=== PATIENT | female | born 1935 | race Caucasian/White ===

== ENCOUNTER 2019-03-26 21:44 | Inpatient (IN) ==
[2019-03-26] MEDS ORDERED: 0.9 % Sodium Chloride 1,000 ML IVC ONE (22:00)
--- NOTE | 2019-03-26 22:05 | Emergency Department Note ---
Disposition Clinical Impression: Dehydration, Decreased responsiveness, Parkinsons disease Dysphagia Qualifiers: Dysphagia type: unspecified Qualified Code(s): R13.10 - Dysphagia, unspecified Failure to thrive Qualifiers: Failure to thrive age range: in adult Qualified Code(s): R62.7 - Adult failure to thrive Disposition: Still a Patient Referrals: Yan Jacob MD [Primary Care Provider] - Time of Disposition: 23:15 General Adult HPI - General Time Seen by Provider: 03/26/19 21:48 Source: patient, family, EMS Mode of arrival: EMS Limitations: no limitations Nursing Notes Reviewed: Yes Vital Signs Reviewed: Yes - History of Present Illness HPI Narrative: Patient is an 83-year-old female with a past medical history including hypertension, GERD, arthritis, Parkinson's disease, presenting with family via EMS with chief complaint of decreased responsiveness and dehydration. Family including the patient's 2 sons, one of him is her power of forestry foreman is at bedside. They state that the patient has had a decreased appetite and difficulty eating and swallowing food and water for one week. They state that the patient does have decreased urination. The patient states it is painful to swallow the food. Sons state that it appears that she has a difficult time with the swallowing process. They note no new weakness. Patient denies any numbness or tingling. Over the past week, they state that the patient appears very dehydrated, she also has decreased responsiveness as well. They state she appears to be slower in answering questions and having a difficult time talking. She will wake up to her name and painful stimuli. They are concerned that the patient is very dehydrated as she has not taken in much by mouth. They state that the patient is DNR CC. They do not want invasive procedures performed. Denies fevers or chills, shortness of breath, chest pain, abdominal pain, vomiting. - Related Data Home Medications Medication Instructions Recorded Confirmed Carbidopa/Levodopa 25/100 [Sinemet] 2 each PO TID 06/18/15 01/18/19 Krill Oil/[place]-3/Dha/Epa [[place]-3 1 each PO DAILY 06/18/15 01/18/19 Krill Oil Softgel] Omeprazole [Prilosec] 20 mg PO DAILY 06/18/15 01/18/19 Vitamin D3/Folic Acid [Ortho D 2,000 units PO DAILY 06/18/15 01/18/19 3,775 Unit-1 mg Cap] l [place]ass[place]/B Bifidum/B Longum 1 each PO DAILY 06/18/15 01/18/19 [Reflectance Medical Capsule] Fluticasone Propionate Nasal 50 mcg NS BID PRN 06/22/17 01/18/19 [Flonase] Rotigotine [Neupro] 1 each TD DAILY 06/22/17 01/18/19 Calcium Carbonate/Vitamin D3 1 each PO DAILY 01/02/18 01/18/19 [Calcium 600 + Vit D Softgel] Albuterol Sulfate [Proair Hfa] 2 puff IH Q4H PRN 06/12/18 01/18/19 Furosemide [Lasix] 20 mg PO DAILY 06/12/18 01/18/19 Megestrol Acetate [Megace] 40 mg PO DAILY 06/12/18 01/18/19 Polyethylene Glycol 3350 [MiraLAX] 17 gm PO DAILY PRN 06/12/18 01/18/19 Tamsulosin HCl [Flomax] 0.4 mg PO DAILY 06/12/18 01/18/19 Torsemide [Demadex] 0.5 - 1 tab PO DAILY PRN 06/12/18 01/18/19 Previous Rx's Medication Instructions Recorded Venlafaxine [Effexor] 25 mg PO BID #180 tablet 07/26/18 Allergies Allergy/AdvReac Type Severity Reaction Status Date / Time aspirin [ASA] Allergy Nausea Verified 03/26/19 22:02 Penicillins [PCN] Allergy Nausea Verified 03/26/19 22:02 All systems ED: reviewed and negative except as stated. Review of Systems: As Per HPI Constitutional: Denies: fever, chills Cardiovascular: Denies: chest pain Respiratory: Denies: dyspnea Gastrointestinal: Denies: abdominal pain, vomiting Genitourinary: Reports: dysuria Neurological: Denies: headache Past Medical History - Past Medical History Attestation: Yes The following information was validated with the patient. Source: patient Medical history: Reports: arthritis, asthma, cancer, GERD, hypertension Surgical history: Reports: breast surgery, hip replacement Psychiatric history: Reports: no psych history - Social History Smoking Status: Never smoker Smokeless Tobacco Status: No Alcohol use: Reports: none Drug use: Reports: none Physical Exam - General Limitations: no limitations General appearance: alert, in no apparent distress, cachectic - Head Head exam: atraumatic, normocephalic - Eye Eye exam: Present: normal appearance, PERRL, EOMI - ENT ENT exam: mucous membranes dry - Neck Neck exam: Present: trachea midline - Chest Chest inspection: Present: normal inspection, symmetric chest wall rise - Respiratory Respiratory exam: Present: normal lung sounds bilaterally. Absent: respiratory distress, wheezes - Cardiovascular Cardiovascular exam: Present: regular rate, normal rhythm - Abdominal Exam Abdominal exam: Present: soft, Non-Tender. Absent: distention - Extremities Exam Extremities exam: Present: normal capillary refill. Absent: pedal edema, calf tenderness - Neurological Exam Neurological exam: Present: alert, oriented X3. Absent: motor sensory deficit - Expanded Neurological Exam Motor strength - LUE: 5/5 Motor strength - RUE: 5/5 Motor strength - LLE: 5/5 Motor strength - RLE: 5/5 - Skin Skin exam: Present: warm, dry Course Vital Signs Temperature 97.9 F 03/26/19 22:02 Pulse Rate 95 03/26/19 22:02 Respiratory Rate 22 03/26/19 22:02 Blood Pressure 113/66 03/26/19 22:02 O2 Sat by Pulse Oximetry 94 03/26/19 22:02 Temperature 97.9 F 03/26/19 22:02 Pulse Rate 95 03/26/19 22:02 Respiratory Rate 22 03/26/19 22:02 Blood Pressure 113/66 03/26/19 22:02 O2 Sat by Pulse Oximetry 94 03/26/19 22:02 Oxygen Delivery Oxygen Delivery Oximizer Medical Decision Making - [facility] Narrative Medical decision making narrative: Discussed with patient and family at bedside including the patient's power of forestry foreman. They have documentation states the patient is DNR CC. They do not want the patient to undergo any invasive procedures. They do however consent to lab work, imaging studies. They had concerns that she is not eating and is very dehydrated. Patient will close her eyes in the room but opens her eyes to name and verbal stimuli. She follows commands appropriately. She does also answer questions appropriately. Her strength is equal bilaterally. Her oral mucosa are significantly dry. She is slow to respond at times. We will give her a liter of IV fluid bolus and reevaluate. We will obtain CBC, BMP, chest x- ray, urinalysis, EKG. Patient denies any pain at this time. Anticipate admission. Family will need to have discussions of goals of care. Discussed possible EGD to evaluate for mechanical cause which family does not want. Discu ssed the need for potential TPN and feeding tube if the patient is unable to tolerate PO. Admission pending labs, imaging. - Medical Records Medical records reviewed: Yes I reviewed the patient's medical records. - Lab Data Result diagrams: 03/26/19 22:25 Lab Results 03/26/19 Range/Units 22:25 WBC 10.6 (4.3-11.1) K/mcL RBC 4.48 (3.82-4.97) M/mcL Hgb 14.5 (11.5-15.4) g/dL Hct 47.8 H (35.3-44.9) % MCV 106.7 H (83.0-100.0) fL MCH 32.4 (28.0-33.3) pg MCHC 30.3 L (31.6-35.5) g/dL RDW 12.5 (11.5-14.5) % Plt Count 198 (140-400) K/mcL MPV 10.3 (9.4-12.4) fL Immature Gran % 0.4 (0-4) % Seg Neutrophils % 80.1 % Lymphocytes % 11.2 % Monocytes % 7.9 % Eosinophils % 0.1 % Basophils % 0.3 % Neutrophils # 8.5 (1.6-8.9) K/mcL Lymphocytes # 1.2 (0.6-4.6) K/mcL Monocytes # 0.8 (0.0-1.3) K/mcL Eosinophils # 0.0 (0.0-0.6) K/mcL Basophils # 0.0 (0.0-0.2) K/mcL - EKG Data EKG #1 EKG attestation: Yes I reviewed and interpreted this EKG. EKG results narrative: EKG obtained at 2227 shows sinus rhythm with heart rate 94, WA interval 189, QRS duration 139, QTC 477, right bundle branch block, no ST elevation or depression, compared to old EKG on 12/29/2017 which is no new changes.
--- NOTE | 2019-03-26 22:16 | Emergency Department Note ---
Disposition Clinical Impression: Dehydration, Decreased responsiveness, Parkinsons disease Disposition: Still a Patient Referrals: Yan Jacob MD [Primary Care Provider] - Time of Disposition: 22:16 General Adult HPI - General Time Seen by Provider: 03/26/19 21:48 Source: patient, family, EMS Mode of arrival: EMS Limitations: no limitations Nursing Notes Reviewed: Yes Vital Signs Reviewed: Yes - History of Present Illness HPI Narrative: Attestation note: Patient was seen with the emergency medicine resident/nurse practitioner/physician administrative assistant office manager/transitional resident/medical student: Dr. JON OMER. I was present for the significant portions of the performance and interpretation of procedures and EKGs. I have personally performed a face to face evaluation on this patient. I have reviewed and agree with history and physical examination patient management and disposition. BRIEFLY: 82-year-old female history of advanced Parkinson's disease, transported by EMS from her home for decreased responsiveness poor feeding dehydration. Patient's family which includes a power of senior business development analyst present states that the mother has advanced Parkinson's for the past week has barely ate or drank. There are times that she has been sleepy but arouses easily to voice and light touch. And does appear to have a masklike facies consistent with Parkinson's dry oral mucosa she is thin but not quite cachectic. Family said they did not want anything invasive at this point they did not want admission. They were comfortable with IV rehydration with IV fluids screening labs urinalysis chest x-ray and CAT scan of the head. Disposition pending - Related Data Home Medications Medication Instructions Recorded Confirmed Carbidopa/Levodopa 25/100 [Sinemet] 2 each PO TID 06/18/15 01/18/19 Krill Oil/[place]-3/Dha/Epa [[place]-3 1 each PO DAILY 06/18/15 01/18/19 Krill Oil Softgel] Omeprazole [Prilosec] 20 mg PO DAILY 06/18/15 01/18/19 Vitamin D3/Folic Acid [Ortho D 2,000 units PO DAILY 06/18/15 01/18/19 3,775 Unit-1 mg Cap] l [place]/B Bifidum/B Longum 1 each PO DAILY 06/18/15 01/18/19 [Branch2 Capsule] Fluticasone Propionate Nasal 50 mcg NS BID PRN 06/22/17 01/18/19 [Flonase] Rotigotine [Neupro] 1 each TD DAILY 06/22/17 01/18/19 Calcium Carbonate/Vitamin D3 1 each PO DAILY 01/02/18 01/18/19 [Calcium 600 + Vit D Softgel] Albuterol Sulfate [Proair Hfa] 2 puff IH Q4H PRN 06/12/18 01/18/19 Furosemide [Lasix] 20 mg PO DAILY 06/12/18 01/18/19 Megestrol Acetate [Megace] 40 mg PO DAILY 06/12/18 01/18/19 Polyethylene Glycol 3350 [MiraLAX] 17 gm PO DAILY PRN 06/12/18 01/18/19 Tamsulosin HCl [Flomax] 0.4 mg PO DAILY 06/12/18 01/18/19 Torsemide [Demadex] 0.5 - 1 tab PO DAILY PRN 06/12/18 01/18/19 Previous Rx's Medication Instructions Recorded Venlafaxine [Effexor] 25 mg PO BID #180 tablet 07/26/18 Allergies Allergy/AdvReac Type Severity Reaction Status Date / Time aspirin [ASA] Allergy Nausea Verified 03/26/19 22:02 Penicillins [PCN] Allergy Nausea Verified 03/26/19 22:02 Constitutional: Denies: fever, chills Cardiovascular: Denies: chest pain Respiratory: Denies: dyspnea Gastrointestinal: Denies: abdominal pain, vomiting Genitourinary: Reports: dysuria Neurological: Denies: headache Past Medical History - Past Medical History Medical history: Reports: arthritis, asthma, cancer, GERD, hypertension Surgical history: Reports: breast surgery, hip replacement Psychiatric history: Reports: no psych history - Social History Smoking Status: Never smoker Smokeless Tobacco Status: No Alcohol use: Reports: none Drug use: Reports: none Physical Exam - General Limitations: no limitations General appearance: alert, in no apparent distress, cachectic
[2019-03-26 22:46] LABS: Basophils % 0.3 %; Eosinophils % 0.1 %; Hematocrit 47.8 % (35.3-44.9); Hemoglobin 14.5 g/dL (11.5-15.4); Immature Granulocytes % 0.4 % (0-4); Lymphocytes # 1.2 K/mcL (0.6-4.6); Lymphocytes % 11.2 %; Mean Corpuscular HGB Conc 30.3 g/dL (31.6-35.5); Mean Corpuscular Hemoglobin 32.4 pg (28.0-33.3); Mean Corpuscular Volume 106.7 fL (83.0-100.0); Mean Platelet Volume 10.3 fL (9.4-12.4); Monocytes # 0.8 K/mcL (0.0-1.3); Monocytes % 7.9 %; Neutrophils # 8.5 K/mcL (1.6-8.9); Platelet Count 198 K/mcL (140-400); Red Blood Count 4.48 M/mcL (3.82-4.97); Red Cell Distribution Width 12.5 % (11.5-14.5); Segmented Neutrophils % 80.1 %; White Blood Count 10.6 K/mcL (4.3-11.1)
[2019-03-26 23:35] LABS: BUN/Creatinine Ratio 36 (6-26); Blood Urea Nitrogen 32 mg/dL (8-23); Calcium 10.4 mg/dL (8.6-10.3); Carbon Dioxide 39 mEq/L (23-29); Chloride 100 mEq/L (98-107); Glucose 103 mg/dL (70-105); Osmolality,Calculated 311 (280-300); Potassium 3.9 mEq/L (3.5-5.1); Sodium 147 mEq/L (136-145); eGFR For African Americans > 60 (> 60); eGFR For Non-African Americans 60 (> 60)
[2019-03-27 00:23] LABS: Bilirubin,Urine Small (Negative); Blood,Urine Trace (Negative); Clarity,Urine Cloudy (Clear); Color,Urine Yellow (Yellow); Glucose,Urine (UA) Normal (Normal); Ketones,Urine Negative (Negative); Leukocyte Esterase,Urine Large (Negative); Nitrite,Urine Negative (Negative); PH,Urine 5.5 pH Units (5.0-8.0); Protein,Urine 100 mg/dL (Neg-Trace); Specific Gravity,Urine 1.021 (1.010-1.025); Urobilinogen,Urine Normal (Normal)
[2019-03-27 00:25] LABS: Bacteria,Urine Few per hpf (None-Few); Hyaline Casts,Urine None Seen per lpf (None-Few); Squamous Epithelial Cell,Urine Many per lpf (None-Few); WBC,Urine TNTC per hpf (0-3)
[2019-03-27] MEDS ORDERED: Vancomycin (wt based) 1,000 MG VIAL IV STA (00:32)
[2019-03-27] MEDS ORDERED: Naloxone 0.4 MG/ML INJ IVP PRN (02:47)
[2019-03-27] MEDS ORDERED: Ondansetron 4 MG/2 ML VIAL IVP PRN (02:47)
[2019-03-27] MEDS ORDERED: 0.45 % Sodium Chloride w/KCl 20 MEQ/1,000 ML MLS IVC SCH (03:00)
[2019-03-27] MEDS ORDERED: *HR* Metoprolol 5 MG/5 ML VIAL IVP ONE (03:02)
[2019-03-27 03:08] LABS: ABG PCO2 > 150 mmHg (35-45); ABG PH 6.94 pH Units (7.32-7.45); ABG PO2 175 mmHg (85-104)
[2019-03-27] MEDS: *HR* Metoprolol 5 MG/5 ML VIAL IVP PRN (03:12)
[2019-03-27] MEDS ORDERED: 0.9 % Sodium Chloride 1,000 ML ONE (03:23)
[2019-03-27] MEDS ORDERED: Artificial Tears SOLN 15 ML BOTTLE BOTH EYES PRN (03:47)
[2019-03-27] MEDS: cefTRIAXone 2,000 MG in Water for inj. (sterile) 20 ML IVP SCH (04:44)
[2019-03-27 04:45] LABS: Basophils % 0.3 %; Hematocrit 47.2 % (35.3-44.9); Hemoglobin 13.9 g/dL (11.5-15.4); Immature Granulocytes % 0.6 % (0-4); Lymphocytes # 0.5 K/mcL (0.6-4.6); Lymphocytes % 3.2 %; Mean Corpuscular HGB Conc 29.4 g/dL (31.6-35.5); Mean Corpuscular Hemoglobin 32.7 pg (28.0-33.3); Mean Corpuscular Volume 111.1 fL (83.0-100.0); Mean Platelet Volume 10.2 fL (9.4-12.4); Monocytes # 0.9 K/mcL (0.0-1.3); Monocytes % 6.3 %; Neutrophils # 12.8 K/mcL (1.6-8.9); Platelet Count 184 K/mcL (140-400); Red Blood Count 4.25 M/mcL (3.82-4.97); Red Cell Distribution Width 12.5 % (11.5-14.5); Segmented Neutrophils % 89.6 %; White Blood Count 14.3 K/mcL (4.3-11.1)
--- NOTE | 2019-03-27 05:07 | Internal Med History&Physical ---
Date of Encounter: 03/27/19 Time of Encounter: 01:35 Internal Medicine - H&P: HPI Chief complaint: AMS; depressed oral intake Admitted From: Emergency Dept Plans for Post Hospital Care: Home History of present illness: Ms. Lofton is an 83 year old female who presents to the ER tonight with complaints of altered mental status, weakness, poor oral intake for last several days, and difficulty swallowing food. She was found to be profoundly dehydrated and had evidence of UTI. She was therefore admitted to the hospitalist service. Upon my assessment of the patient in ER, her 2 sons and sister were at the bedside. Patient was very dehydrated in appearance, nonverbal, weak, but alert and responsive. History was obtained from both her sons and her sister. 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 She lives at home with 24-hour in-house care. Family members state that over the last 3 day s, she has had minimal to no oral intake, including fluids. She has had increasing confusion, decreased alertness, and increased somnolence according to family. Patient received IV fluids and antibiotics in the ER. Patient was conversant earlier in the day with her sons and verbally told them that she refused to have a feeding tube placed. I broached the subject about resuscitation and CODE STATUS. Her oldest son is the power of workers compensation attorney, and he confirms that she is DNR arrest. However, they both requested and agreed that she see receive full supportive means as necessary in the event she develops sepsis, respiratory failure, and/or need for pressors. This includes intubation and mechanical ventilation. They do not want her to receive chest compressions, defibrillation, and/or sustained life support. I recommended the patient's family and the patient herself (if/when coherent) have a discussion with palliative care and child protective services social worker to further delineate goals of care. Bryan brizuela, I accepted the patient on admission and informed the family that we will proceed with IV fluids, antibiotics, and support as necessary. I was then called to the patient floor/bedside roughly 2 hours later as the patient was now unresponsive and there was concern that she might develop respiratory arrest. I came to the bedside, and patient did have a status change. She was unresponsive and only had a gag reflex on my exam -- a clear change from my earlier assessment in ER. I ordered stat ABG, which revealed profound respiratory acidosis. We therefore intubated patient at the bedside urgently. Patient was successfully intubated by respiratory therapy under my direct supervision. I attempted to call family prior to intubation to confirm their wishes for life support. However, I was unable to reach family members by 2 separate phone calls. I left a voicemail for family to call and contact ICU. Once we established an airway, patient was moved to intensive care unit for ongoing life supporting measures. CODE STATUS will remain DNR arrest. In the event she develops a cardiac arrest, we will honor her wishes and the wishes of her power of workers compensation attorney, and we will not resuscitate in the event of cardiac arrest. Past Med Surg Social Fam HX - Past Medical History Source: old records reviewed, obtained from family Medical history: arthritis, asthma, cancer, dementia (Parkinsons), GERD, hypertension Psychiatric history: no psych history - Past Surgical History Surgical History: breast surgery, hip replacement - Social History Smoking Status: Never smoker Smokeless Tobacco Status: No Alcohol use: none Drug use: none Current living situation: Home Activity Level: Mostly sedentary Recent Out of Country Travel Within the Last 8 Weeks: No - Family History Mother History Unknown: Yes Living Status: Father History Unknown: Yes Living Status: Internal Medicine - H&P: Meds Carbidopa/Levodopa 25/100 [Sinemet] 2 each PO TID 06/18/15 [History] Krill Oil/[place]-3/Dha/Epa [[place]-3 Krill Oil Softgel] 1 each PO DAILY 06/18/15 [History] Omeprazole [Prilosec] 20 mg PO DAILY 06/18/15 [History] Vitamin D3/Folic Acid [Ortho D 3,775 Unit-1 mg Cap] 2,000 units PO DAILY 06/18/15 [History] l [place]ass[place]/B Bifidum/B Longum [[employer] Capsule] 1 each PO DAILY 06/18/15 [History] Fluticasone Propionate Nasal [Flonase] 50 mcg NS BID PRN 06/22/17 [History] Rotigotine [Neupro] 1 each TD DAILY 06/22/17 [History] Calcium Carbonate/Vitamin D3 [Calcium 600 + Vit D Softgel] 1 each PO DAILY 01/02/18 [History] Albuterol Sulfate [Proair Hfa] 2 puff IH Q4H PRN 06/12/18 [History] Furosemide [Lasix] 20 mg PO DAILY 06/12/18 [History] Megestrol Acetate [Megace] 40 mg PO DAILY 06/12/18 [History] Polyethylene Glycol 3350 [MiraLAX] 17 gm PO DAILY PRN 06/12/18 [History] Tamsulosin HCl [Flomax] 0.4 mg PO DAILY 06/12/18 [History] Torsemide [Demadex] 0.5 - 1 tab PO DAILY PRN 06/12/18 [History] Venlafaxine [Effexor] 25 mg PO BID #180 tablet 07/26/18 [Rx] Allergy/AdvReac Type Severity Reaction Status Date / Time aspirin [ASA] Allergy Nausea Verified 03/26/19 22:02 Penicillins [PCN] Allergy Nausea Verified 03/26/19 22:02 ROS unobtainable: due to mental status All Systems PM: per family report in [id number] - Constitutional Constitutional: fatigue, no chills, no fever(s) - Cardiovascular Cardiovascular ROS IM: no chest pain, no dyspnea - Respiratory Respiratory: no cough, no chest congestion - Gastrointestinal Additional comments: poor to no oral intake - Neurological Neurological ROS: confusion - Psychiatric Psychiatric: abnormal sleep pattern, confusion - Constitutional Vitals: Temp Pulse Resp BP Pulse Ox 97.9 F 85 14 143/95 100 03/26/19 22:02 03/27/19 04:00 03/27/19 04:28 03/27/19 04:28 03/27/19 04:28 General appearance: Present: A&O X 0, no acute distress. Absent: answers questions appropriately Exam: very dry in appearance, somnolent, arousable, looking around with her eyes - Head Head exam: Present: atraumatic, normal inspection - Eye Eye exam: Present: EOMI. Absent: scleral icterus - ENT ENT exam: Present: mucous membranes dry, normal oropharynx - Neck Neck exam general surgery: Present: trachea midline. Absent: lymphadenopathy, tenderness, nuchal rigidity, thyromegaly - Respiratory Respiratory exam: Present: CTAB. Absent: accessory muscle use, chest wall tenderness, rales, respiratory distress, rhonchi, wheezes - Cardiovascular Cardiovascular exam: Present: irregular rhythm, +S1, +S2, systolic murmur, tachycardia. Absent: diastolic murmur - GI/Abdominal GI/Abdominal exam: Present: normal bowel sounds, soft. Absent: guarding, hepatomegaly, mass, rebound, splenomegaly, tenderness - Extremities Exam Extremities exam: Present: warm. Absent: calf tenderness, joint swelling, normal capillary refill (delayed at roughly 4 seconds), pedal edema, tenderness - Neurological Exam Neurological exam: Present: altered Additional comments: somnolent, arousable, non-verbal, responds to painful and verbal stimuli; after arrival to patient floor from ER, status change noted with depressed LOC - Psychiatric Psychiatric exam: Present: flat affect - Skin Skin exam: Present: dry, intact, warm Internal Med - H&P Results - Labs CBC & Chem 7: 03/26/19 22:25 03/26/19 22:25 Labs: Short CBC 03/26/19 Range/Units 22:25 WBC 10.6 (4.3-11.1) K/mcL Hgb 14.5 (11.5-15.4) g/dL Hct 47.8 H (35.3-44.9) % Plt Count 198 (140-400) K/mcL Neutrophils # 8.5 (1.6-8.9) K/mcL BMP 03/26/19 22:25 Sodium 147 H Potassium 3.9 Chloride 100 Carbon Dioxide 39 H BUN 32 H Creatinine 0.90 Glucose 103 Calcium 10.4 H Urine 03/26/19 Range/Units 23:55 Urine Color Yellow (Yellow) Urine Clarity Cloudy A (Clear) Urine pH 5.5 (5.0-8.0) pH Units Ur Specific [place] 1.021 (1.010-1.025) Urine Protein 100 H (Neg-Trace) mg/dL Urine Glucose (UA) Normal (Normal) mg/dL - ABG Interpretation Interpretation: ABG interpreted by me ABG results: 03/27/19 03:04 ABG pH 6.94 L* ABG pCO2 > 150 H* ABG pO2 175 H ABG HCO3 TNP ABG Total CO2 TNP ABG O2 Saturation TNP ABG Base Excess TNP Interpretation: respiratory acidosis - EKG Data -: EKG Interpreted by Myself - EKG Data Prior EKG available for review: no EKG comments: 03/27/19 05:13 atrial fib/RVR - Impressions ITS Impressions Chest X-Ray 03/26/19 22:00 IMPRESSION: No acute abnormality identified. D/ / Blake Ledezma MD / Blake Ledezma MD Interpreting Provider: Blake Ledezma MD Head CT 03/26/19 22:01 IMPRESSION: 1. No intracranial hemorrhage or acute transcortical infarct. 2. Redemonstration of mild white matter hypoattenuation likely the sequela of chronic small vessel ischemia. If there is persistent clinical concern for acute ischemia, MRI would be the more sensitive modality. D/ / Gavino Gamino / Gavino Gamino Interpreting Provider: Gavino Gamino Chest X-Ray 03/27/19 03:47 IMPRESSION: ET tube low lying. Recommend pulling back by approximately 4 cm. NG tube in satisfactory position. Left pleural effusion versus pleural thickening. D/ / Shilo Marks MD / Shilo Marks MD Interpreting Provider: Shilo Marks MD - Diagnostic Studies Chest x-ray Status: image reviewed by me (negative) - Assessment and Plan (1) Acute hypercapnic respiratory failure Current Visit: Yes Status: Acute Assessment and plan: 1. Patient noted to have status change shortly after arrival to nursing unit. Patient intubated and airway secured, then moved to ICU for ongoing ventilatory support. 2. Vent management orders provided and will trend ABG's. 3. I tried to contact family members by two different phone number s prior to intubation, but no answer -- left voicemail. 4. Consult Pulmonology for ICU management. 5. Consult palliative care for goals of care counseling. (2) UTI (urinary tract infection) Current Visit: Yes Status: Acute Assessment and plan: 1. Urine cultures obtained in ER. 2. I also ordered blood cultures. 3. Will continue IV antibiotics with IV Rocephin. 4. Follow cultures and clinical exam, adjusting antibiotics as necessary. Qualifiers: Urinary tract infection type: acute cystitis Hematuria presence: with hematuria Qualified Code(s): N30.01 - Acute cystitis with hematuria (3) Dehydration Current Visit: Yes Status: Acute Assessment and plan: 1. IVF hydration. 2. Monitor electrolytes closely, I/O, and renal function. 3. Krishna placement for critical I/O monitoring. (4) Failure to thrive Current Visit: Yes Status: Chronic Assessment and plan: 1. Consult palliative care to meet with family and POA regarding goals of care. 2. Patient voiced to both sons earlier yesterday that she would refuse a feeding tube. 3. IVF hydration for now. 4. May need nutrition consult in the next 24 hours pending above work-up and discussions. Qualifiers: Failure to thrive age range: in adult Qualified Code(s): R62.7 - Adult failure to thrive (5) Parkinsonism Current Visit: Yes Status: Chronic Assessment and plan: 1. Progressive and advanced. 2. Resume home meds as appropriate when meds verified. 3. Goals of care discussion as above. Qualifiers: Parkinsonism type: Parkinson's disease Qualified Code(s): G20 - Parkinson's disease (6) DVT prophylaxis Current Visit: Yes Status: Acute Assessment and plan: 1. Heparin SQ.
[2019-03-27 05:12] LABS: Macrocytosis Present (Not Present); Platelet Estimate Normal (Normal)
[2019-03-27 05:13] LABS: Alanine Aminotransferase 19 Units/L (7-52); Albumin/Globulin Ratio 1.5 (1.1-2.2); Alkaline Phosphatase 54 Units/L (34-104); Aspartate Amino Transferase 22 Units/L (13-39); BUN/Creatinine Ratio 32 (6-26); Bilirubin,Total 0.5 mg/dL (0.3-1.0); Blood Urea Nitrogen 30 mg/dL (8-23); Calcium 10.1 mg/dL (8.6-10.3); Carbon Dioxide 37 mEq/L (23-29); Chloride 104 mEq/L (98-107); Globulin 2.6 g/dL (2.4-3.5); Glucose 163 mg/dL (70-105); Magnesium 2.2 mg/dL (1.6-2.6); Osmolality,Calculated 318 (280-300); Phosphorous 8.3 mg/dL (2.7-4.5); Potassium 4.9 mEq/L (3.5-5.1); Sodium 149 mEq/L (136-145); Total Protein 6.6 g/dL (6.4-8.9); eGFR For African Americans > 60 (> 60); eGFR For Non-African Americans 57 (> 60)
[2019-03-27 05:39] LABS: ABG Base Excess 9 mEq/L (-2 to 3); ABG HCO3 35 mEq/L (21-27); ABG Oxygen Saturation 98 % (95-98); ABG PCO2 52 mmHg (35-45); ABG PH 7.43 pH Units (7.32-7.45); ABG PO2 102 mmHg (85-104); ABG TCO2 36 mEq/L (20-26); Blood Gas PEEP 5 cm H2O; Blood Gas VT 380 cc
[2019-03-27] MEDS: Artificial Tears SOLN 15 ML BOTTLE BOTH EYES SCH ×5 (06:13→20:10)
[2019-03-27] MEDS: Pantoprazole 40 MG VIAL IVP SCH (06:13)
[2019-03-27] MEDS: *HR* Heparin 5,000 UNIT/ML VIAL SQ SCH ×2 (06:13→18:21)
[2019-03-27] MEDS ORDERED: Norepinephrine 4 MG in D5% in Water 250 ML IVC SCH (07:32)
[2019-03-27] MEDS ORDERED: 0.9 % Sodium Chloride 1,000 ML IVC ONE (07:39)
[2019-03-27] MEDS: MetroNIDAZOLE 500 MG/100 ML 500 MG/100 ML BAG IVPB SCH ×2 (08:11→16:02)
[2019-03-27] MEDS: Carbidopa/Levodopa 25/100 TABLET PO SCH ×3 (08:18→20:10)
[2019-03-27] MEDS ORDERED: Dexmedetomidine HCl 400 MCG/100 ML MLS IVC SCH (09:00)
--- NOTE | 2019-03-27 09:20 | Pulmonology Consult Note ---
<Cecily Jules - Last Filed: 03/27/19 10:53> Date of Encounter: 03/27/19 Time of Encounter: 08:40 Assessment and Plan (1) Sepsis Current Visit: Yes Status: Acute Likely secondary to UTI At presentation was not tachycardic or febrile This morning noted to have temperature of 100.7, heart rate in the 90s with WBC 14.3 This morning also hypotensive, we will give IV hydration with albumin Require EPIV for pressors after family meeting Continue ceftriaxone for UTI and IV Flagyl day 1 for aspiration pneumonia Qualifiers: Sepsis type: sepsis due to unspecified organism Severe sepsis acute organ dysfunction type: acute respiratory failure Acute respiratory failure type: with hypercapnia Severe sepsis shock status: without septic shock Qualified Code(s): A41.9 - Sepsis, unspecified organism; R65.20 - Severe sepsis without septic shock; J96.02 - Acute respiratory failure with hypercapnia (2) Acute hypercapnic respiratory failure Current Visit: Yes Status: Acute Presented to the ED due to worsening mental status Likely secondary to decreased muscle use from progressive Parkinson's disease At presentation was not hypoxic Shortly after admission was noted to be unresponsive and ABG showed pH of 6.94 with PCO2 of 150 Currently intubated (3) Parkinsons disease Current Visit: Yes Status: Chronic History of progressed Parkinson's disease Prescribed Sinemet at home but has not been taking it due to dysphagia Concern for severely progressed Parkinson's Will restart home Sinemet (4) Dehydration Current Visit: Yes Status: Acute Dehydration likely secondary to decreased oral intake Per family patient has been having difficulty swallowing for quite some time progressed the past 3 days Family reports the patient does not want a feeding tube for nutrition Continue IV hydration (5) Dysphagia Current Visit: Yes Status: Chronic Dysphagia likely secondary to progressive Parkinson's disease Family reports were-time she has had poor oral intake and often needs to be fed small bites at a time She does not want a PEG tube Qualifiers: Dysphagia type: unspecified Qualified Code(s): R13.10 - Dysphagia, unspecified (6) Failure to thrive Current Visit: Yes Status: Chronic BMI of 17.3 Likely secondary to poor oral intake Continue IV hydration Can initiate to feed Palliative care consultated Qualifiers: Failure to thrive age range: in adult Qualified Code(s): R62.7 - Adult failure to thrive (7) DVT prophylaxis Current Visit: Yes Status: Acute Subcutaneous heparin History of Present Illness Consult date: 03/27/19 Reason for consult: other (septic shock) History of present illness: Ms. Lofton is an 83-year-old female with past medical history of Parkinson's, who presented to the ED on 03/26/1933 altered mental status, weakness and difficulty swallowing. In the ED she was found to be profoundly dehydrated and urinalysis showed leukocyte esterase with white blood cells. Information is obtained from chart review. Only reports that for the past 3 days she has had minimal to no oral intake including fluids to 2 confusion and somnolence and per family she had informed sounds as she does not want feeding tube placed. Per chart review family is agreeable to intubation and mechanical ventilation but do not want chest compressions or defibrillation. Her ABG overnight showed pH 6.94, with PCO2 of 150. Overnight she became unresponsive and only had gag reflex, subseq uently needed to be intubated. This morning her white count has increased to 14.3 from 10.6 has received 2 L of IV fluid in response to volume resuscitation appropriately. She is awake and responds with head movement. Past Med Surg Social Fam HX - Past Medical History Medical history: arthritis, asthma, cancer, dementia (Parkinsons), GERD, hypertension Psychiatric history: no psych history - Past Surgical History Surgical History: breast surgery, hip replacement - Social History Smoking Status: Never smoker Smokeless Tobacco Status: No Alcohol use: none Drug use: none - Family History Mother History Unknown: Yes Living Status: Father History Unknown: Yes Living Status: Medications and Allergies Carbidopa/Levodopa 25/100 [Sinemet] 2 each PO TID 06/18/15 [History] Krill Oil/Leola-3/Dha/Epa [Leola-3 Krill Oil Softgel] 1 each PO DAILY 06/18/15 [History] Omeprazole [Prilosec] 20 mg PO DAILY 06/18/15 [History] Vitamin D3/Folic Acid [Ortho D 3,775 Unit-1 mg Cap] 2,000 units PO DAILY 06/18/15 [History] l Gasseri/B Bifidum/B Longum [[employer] Health Capsule] 1 each PO DAILY 06/18/15 [History] Fluticasone Propionate Nasal [Flonase] 50 mcg NS BID PRN 06/22/17 [History] Rotigotine [Neupro] 1 each TD DAILY 06/22/17 [History] Calcium Carbonate/Vitamin D3 [Calcium 600 + Vit D Softgel] 1 each PO DAILY 01/02/18 [History] Albuterol Sulfate [Proair Hfa] 2 puff IH Q4H PRN 06/12/18 [History] Furosemide [Lasix] 20 mg PO DAILY 06/12/18 [History] Megestrol Acetate [Megace] 40 mg PO DAILY 06/12/18 [History] Polyethylene Glycol 3350 [MiraLAX] 17 gm PO DAILY PRN 06/12/18 [History] Tamsulosin HCl [Flomax] 0.4 mg PO DAILY 06/12/18 [History] Torsemide [Demadex] 0.5 - 1 tab PO DAILY PRN 06/12/18 [History] Venlafaxine [Effexor] 25 mg PO BID #180 tablet 07/26/18 [Rx] Allergy/AdvReac Type Severity Reaction Status Date / Time aspirin [ASA] Allergy Nausea Verified 03/26/19 22:02 Penicillins [PCN] Allergy Nausea Verified 03/26/19 22:02 ROS unobtainable: due to endotracheal tube, due to mental status All Systems: The remainder of the systems were reviewed and are negative Physical Examination Vital Signs: Vital Signs, Last 4 Hours Temp Pulse Resp BP Pulse Ox 03/27/19 08:17 100.7 F H 03/27/19 08:06 99 96/61 97 03/27/19 07:52 96 81/53 97 03/27/19 06:00 99.1 F 68 18 68/53 97 03/27/19 05:43 18 95 03/27/19 05:00 96 18 114/64 94 General appearance: no acute distress, alert Eyes: nonicteric ENT: oropharynx moist Neck: supple Effort: normal Inspection: normal Auscultation: bilateral: clear Cardiovascular: regular rate and rhythm Gastrointestinal: soft, non-tender Integumentary: normal Extremities: no cyanosis, no edema Musculoskeletal: no deformities non-focal exam, unable to assess due to mental status Ventilator Settings Ventilator Settings: Ventilator Settings, Last 8 Hours Ventilator Tidal Volume 374 Setting Ventilator Tidal Volume 379 Setting Ventilator Tidal Volume 380 Setting Ventilator Tidal Volume 380 Setting Ventilator Tidal Volume 380 Setting Ventilator Tidal Volume 380 Setting Ventilator Tidal Volume 380 Setting Ventilator Tidal Volume 380 Setting Ventilator Respiratory Rate 14 Setting Ventilator Respiratory Rate 14 Setting Ventilator Respiratory Rate 14 Setting Ventilator Respiratory Rate 14 Setting Ventilator Respiratory Rate 14 Setting Ventilator Respiratory Rate 14 Setting Ventilator Respiratory Rate 14 Setting Ventilator Respiratory Rate 14 Setting Actual Respiratory Rate 18 Actual Respiratory Rate 18 Actual Respiratory Rate 18 Actual Respiratory Rate 18 Actual Respiratory Rate 18 Actual Respiratory Rate 14 Actual Respiratory Rate 14 Positive End Expiratory 5 Pressure Positive End Expiratory 5 Pressure Positive End Expiratory 5 Pressure Positive End Expiratory 5 Pressure Positive End Expiratory 5 Pressure Positive End Expiratory 5 Pressure Positive End Expiratory 5 Pressure Positive End Expiratory 5 Pressure Peak Inspiratory Airway 29 Pressure Peak Inspiratory Airway 26 Pressure Peak Inspiratory Airway 27 Pressure Peak Inspiratory Airway 27 Pressure Peak Inspiratory Airway 25 Pressure Peak Inspiratory Airway 34 Pressure Peak Inspiratory Airway 29 Pressure Results - Laboratory Findings CBC and BMP: 03/27/19 04:23 03/27/19 09:54 ABG ABG pH 7.43 pH Units (7.32-7.45) D 03/27/19 05:32 ABG pCO2 52 mmHg (35-45) H D 03/27/19 05:32 ABG pO2 102 mmHg (85-104) D 03/27/19 05:32 ABG O2 Saturation 98 % (95-98) 03/27/19 05:32 Abnormal lab findings: Abnormal lab results WBC 14.3 K/mcL (4.3-11.1) H 03/27/19 04:23 Hct 47.2 % (35.3-44.9) H 03/27/19 04:23 MCV 111.1 fL (83.0-100.0) H 03/27/19 04:23 MCHC 29.4 g/dL (31.6-35.5) L 03/27/19 04:23 Neutrophils # 12.8 K/mcL (1.6-8.9) H 03/27/19 04:23 Lymphocytes # 0.5 K/mcL (0.6-4.6) L 03/27/19 04:23 Macrocytosis Present (Not Present) A 03/27/19 04:23 ABG pH 6.94 pH Units (7.32-7.45) L* 03/27/19 03:04 ABG pCO2 52 mmHg (35-45) H D 03/27/19 05:32 ABG pO2 175 mmHg (85-104) H 03/27/19 03:04 ABG HCO3 35 mEq/L (21-27) H 03/27/19 05:32 ABG Total CO2 36 mEq/L (20-26) H 03/27/19 05:32 ABG Base Excess 9 mEq/L (-2 to 3) H 03/27/19 05:32 Sodium 149 mEq/L (136-145) H 03/27/19 04:23 Carbon Dioxide 37 mEq/L (23-29) H 03/27/19 04:23 BUN 30 mg/dL (8-23) H 03/27/19 04:23 Est GFR (Non-Af Amer) 57 (> 60) L 03/27/19 04:23 BUN/Creatinine Ratio 32 (6-26) H 03/27/19 04:23 Glucose 163 mg/dL (70-105) H 03/27/19 04:23 POC Glucose 160 mg/dL (70-99) H 03/27/19 02:59 Calculated Osmolality 318 (280-300) H 03/27/19 04:23 Calcium 10.4 mg/dL (8.6-10.3) H 03/26/19 22:25 Phosphorus 8.3 mg/dL (2.7-4.5) H 03/27/19 04:23 Urine Clarity Cloudy (Clear) A 03/26/19 23:55 Urine Protein 100 mg/dL (Neg-Trace) H 03/26/19 23:55 Urine Blood Trace (Negative) H 03/26/19 23:55 Urine Bilirubin Small (Negative) H 03/26/19 23:55 Ur Leukocyte Esterase Large (Negative) H 03/26/19 23:55 Urine Microscopic RBC 5-15 per hpf (0-3) H 03/26/19 23:55 Urine Microscopic WBC TNTC per hpf (0-3) H 03/26/19 23:55 Ur Squamous Epith Cells Many per lpf (None-Few) H 03/26/19 23:55 Ur Culture Indicated? YES (NO) A 03/26/19 23:55 - Microbiology Findings Microbiology Findings: Microbiology, Last 48 Hours 03/27/19 04:24 Blood Culture - Preliminary Peripheral Venipuncture Culture is incubating and being continuously monitored for growth. Final report to follow. 03/27/19 04:10 Blood Culture - Preliminary Peripheral Venipuncture Culture is incubating and being continuously monitored for growth. Final report to follow. 03/26/19 23:55 Urine Culture - Preliminary Urine,Clean Catch Culture is incubating. - Clinical Findings Intake & Output: Intake & Output 03/26/19 03/27/19 03/27/19 23:59 07:59 15:59 Intake Total 1000 / 1000 30 / 30 Output Total 0 / 50 50 / 50 Balance 1000 / 1000 30 / -20 -50 / -20 Weight 44.906 kg 42.8 kg Consult Discharge Plan - Plan Referrals: Yan Jacob MD [Primary Care Provider] - <Jenny Ann - Last Filed: 03/27/19 19:32> Date of Encounter: 03/27/19 All Systems: The remainder of the systems were reviewed and are negative Physical Examination Vital Signs: Vital Signs, Last 4 Hours Temp Pulse Resp BP Pulse Ox 03/27/19 18:23 97 18 145/82 97 03/27/19 17:11 19 71/47 100 03/27/19 17:00 107 18 71/47 100 03/27/19 16:00 99 18 115/58 98 03/27/19 15:56 100.6 F H 03/27/19 15:33 100 03/27/19 15:32 19 124/76 93 03/27/19 15:30 93 18 124/76 94 Ventilator Settings Ventilator Settings: Ventilator Settings, Last 8 Hours Ventilator Tidal Volume 380 Setting Ventilator Tidal Volume 380 Setting Ventilator Tidal Volume 380 Setting Ventilator Tidal Volume 380 Setting Ventilator Tidal Volume 380 Setting Ventilator Tidal Volume 380 Setting Ventilator Tidal Volume 380 Setting Ventilator Tidal Volume 380 Setting Ventilator Tidal Volume 380 Setting Ventilator Respiratory Rate 18 Setting Ventilator Respiratory Rate 18 Setting Ventilator Respiratory Rate 18 Setting Ventilator Respiratory Rate 18 Setting Ventilator Respiratory Rate 18 Setting Ventilator Respiratory Rate 18 Setting Ventilator Respiratory Rate 18 Setting Ventilator Respiratory Rate 18 Setting Ventilator Respiratory Rate 18 Setting Actual Respiratory Rate 18 Actual Respiratory Rate 19 Actual Respiratory Rate 18 Actual Respiratory Rate 19 Actual Respiratory Rate 18 Actual Respiratory Rate 18 Actual Respiratory Rate 18 Actual Respiratory Rate 18 Actual Respiratory Rate 18 Positive End Expiratory 5 Pressure Positive End Expiratory 5 Pressure Positive End Expiratory 5 Pressure Positive End Expiratory 5 Pressure Positive End Expiratory 5 Pressure Positive End Expiratory 5 Pressure Positive End Expiratory 5 Pressure Positive End Expiratory 5 Pressure Positive End Expiratory 5 Pressure Peak Inspiratory Airway 29 Pressure Peak Inspiratory Airway 26 Pressure Peak Inspiratory Airway 29 Pressure Peak Inspiratory Airway 31 Pressure Peak Inspiratory Airway 34 Pressure Peak Inspiratory Airway 26 Pressure Peak Inspiratory Airway 23 Pressure Peak Inspiratory Airway 26 Pressure Peak Inspiratory Airway 31 Pressure Results - Laboratory Findings CBC and BMP: 03/27/19 04:23 03/27/19 09:54 ABG ABG pH 7.43 pH Units (7.32-7.45) D 03/27/19 05:32 ABG pCO2 52 mmHg (35-45) H D 03/27/19 05:32 ABG pO2 102 mmHg (85-104) D 03/27/19 05:32 ABG O2 Saturation 98 % (95-98) 03/27/19 05:32 PT/INR, D-dimer PT 14.1 Seconds (9.4-12.1) H 03/27/19 09:54 Abnormal lab findings: Abnormal lab results WBC 14.3 K/mcL (4.3-11.1) H 03/27/19 04:23 Hct 47.2 % (35.3-44.9) H 03/27/19 04:23 MCV 111.1 fL (83.0-100.0) H 03/27/19 04:23 MCHC 29.4 g/dL (31.6-35.5) L 03/27/19 04:23 Neutrophils # 12.8 K/mcL (1.6-8.9) H 03/27/19 04:23 Lymphocytes # 0.5 K/mcL (0.6-4.6) L 03/27/19 04:23 Macrocytosis Present (Not Present) A 03/27/19 04:23 PT 14.1 Seconds (9.4-12.1) H 03/27/19 09:54 ABG pH 6.94 pH Units (7.32-7.45) L* 03/27/19 03:04 ABG pCO2 52 mmHg (35-45) H D 03/27/19 05:32 ABG pO2 175 mmHg (85-104) H 03/27/19 03:04 ABG HCO3 35 mEq/L (21-27) H 03/27/19 05:32 ABG Total CO2 36 mEq/L (20-26) H 03/27/19 05:32 ABG Base Excess 9 mEq/L (-2 to 3) H 03/27/19 05:32 Sodium 147 mEq/L (136-145) H 03/27/19 09:54 Chloride 110 mEq/L (98-107) H 03/27/19 09:54 Carbon Dioxide 31 mEq/L (23-29) H 03/27/19 09:54 BUN 29 mg/dL (8-23) H 03/27/19 09:54 Est GFR (Non-Af Amer) 57 (> 60) L 03/27/19 04:23 BUN/Creatinine Ratio 38 (6-26) H 03/27/19 09:54 Glucose 62 mg/dL (70-105) L 03/27/19 09:54 POC Glucose 160 mg/dL (70-99) H 03/27/19 02:59 Calculated Osmolality 308 (280-300) H 03/27/19 09:54 Calcium 8.5 mg/dL (8.6-10.3) L 03/27/19 09:54 Phosphorus 8.3 mg/dL (2.7-4.5) H 03/27/19 04:23 Creatine Kinase 289 Units/L (30-223) H 03/27/19 09:54 Urine Clarity Cloudy (Clear) A 03/26/19 23:55 Urine Protein 100 mg/dL (Neg-Trace) H 03/26/19 23:55 Urine Blood Trace (Negative) H 03/26/19 23:55 Urine Bilirubin Small (Negative) H 03/26/19 23:55 Ur Leukocyte Esterase Large (Negative) H 03/26/19 23:55 Urine Microscopic RBC 5-15 per hpf (0-3) H 03/26/19 23:55 Urine Microscopic WBC TNTC per hpf (0-3) H 03/26/19 23:55 Ur Squamous Epith Cells Many per lpf (None-Few) H 03/26/19 23:55 Ur Culture Indicated? YES (NO) A 03/26/19 23:55 - Microbiology Findings Microbiology Findings: Microbiology, Last 48 Hours 03/27/19 04:24 Blood Culture - Preliminary Peripheral Venipuncture Culture is incubating and being continuously monitored for growth. Final report to follow. 03/27/19 04:10 Blood Culture - Preliminary Peripheral Venipuncture Culture is incubating and being continuously monitored for growth. Final report to follow. 03/26/19 23:55 Urine Culture - Preliminary Urine,Clean Catch Culture is incubating. - Clinical Findings Intake & Output: Intake & Output 03/27/19 03/27/19 03/27/19 07:59 15:59 23:59 Intake Total / 1898 1600 / 1898 268 / 1898 Output Total 0 / 325 325 / 325 Balance 30 1573 1275 / 1573 268 / 1573 Weight 42.8 kg - Attending Attestation I saw and evaluated this patient and my medical decision-making was reviewed with the Resident Physician. I agree with the documented findings, disposition and treatment plan as described except to the extent set forth below. We independently had [id number] contact with the patient I spent 55 minutes of Critical Care time with this patient. It involved decision making of high complexity to assess, manipulate, and support vital or sheri system failure and/or to prevent further life threatening deterioration of the patient's condition. The time involved in the performance of separately reportable procedures was not counted toward critical care time. Patient seen and examined at bedside Labs, radiology, chart personally reviewed. Management was reviewed during multidisciplinary critical care rounds. 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: patient is more alert intubated for acute hypercapnic respiratory failure patient is recovering from this toxic/metabolic encephalopathy Pulm: patient presently with acute hypercapnic respiratory failure improving with the mechanical ventilation no evidence of pneumonia at this moment to cover with broad-spectrum antibiotics low tidal volume strategy repeat blood gas and gas exchange and oxygenation stable Cards: patient has on and off hemodynamic instability most likely severe sepsis into septic shock but patient is fluid responsive if after fluid resuscitation as patient is still hypotensive will need and norepinephrine drip FEN-GI: patient will start on tube feeds as patient is small nourished PPI prophylaxis Renal: labs and output reviewed ID: to cover with broad-spectrum antibiotics Heme/Onc: labs reviewed Endo: Glucose Monitored Integ/MSK: Skin Care per routine ICU Nursing Protocol to prevent ulcers. Lines: All lines examined without evidence of infection : Dispo: critically ill CODE: full code
[2019-03-27] MEDS: Chlorhexidine Rinse 15 ML MOUTHWASH MM SCH ×2 (09:51→20:10)
[2019-03-27 10:19] LABS: INR 1.2; Prothrombin Time 14.1 Seconds (9.4-12.1)
[2019-03-27] MEDS: *HR* FentaNYL (PF) 100 MCG/2 ML VIAL IVP PRN ×3 (10:19→20:10)
[2019-03-27 10:27] LABS: BUN/Creatinine Ratio 38 (6-26); Blood Urea Nitrogen 29 mg/dL (8-23); Calcium 8.5 mg/dL (8.6-10.3); Carbon Dioxide 31 mEq/L (23-29); Chloride 110 mEq/L (98-107); Glucose 62 mg/dL (70-105); Osmolality,Calculated 308 (280-300); Sodium 147 mEq/L (136-145); eGFR For African Americans > 60 (> 60); eGFR For Non-African Americans > 60 (> 60)
[2019-03-27] MEDS ORDERED: *HR* Midazolam HCl 5 MG/5 ML VIAL IVP ONE (11:58)
[2019-03-27] MEDS ORDERED: *HR* Midazolam HCl 2 MG/2 ML VIAL IV ONE (11:58)
[2019-03-27] MEDS ORDERED: *HR* Etomidate 20 MG/10 ML AMPUL IVP ONE (11:58)
[2019-03-27] MEDS: Acetaminophen 325 MG TABLET PO PRN (13:06)
[2019-03-27] MEDS ORDERED: Potassium Phosphate 44 MEQ in 0.9 % Sodium Chloride 250 ML IVPB PRN (13:13)
--- NOTE | 2019-03-27 14:05 | Palliative - Consult Note ---
Date of Encounter: 03/27/19 Time of Encounter: 11:00 - Assessment and Plan (1) Dysphagia Current Visit: Yes Status: Chronic Assessment and plan: Patient with hx parkinsons dx. Family reports a steady decline in overall function and dysphagia. Nutrition consulted and will continue to have discussions with family and patient once she is more stable in regards to PEG placement. Qualifiers: Dysphagia type: unspecified Qualified Code(s): R13.10 - Dysphagia, unspecified (2) Goals of care, counseling/discussion Current Visit: Yes Status: Acute Assessment and plan: I spent a total of 45 minutes; 30 minutes were comprised of counseling and information giving around diagnosis and prognosis with the patient and her family. A detailed review of the patients living will was discussed. The patient has Parkinson's disease has has been declining in function for the past 2 month s. The patient hasn't been able to take po medications or food and is at baseline bedridden and requires total assistance with feedings. In summary, we agreed to insert and EPIV to deliver vasopressor infusion to maintain B/P as needed, administer antibiotics and cont intubation and mechanical ventilation at this time and reevaluate her condition in the next 24 hrs. The patient current weight is 93 lbs and this is down from 108 lbs. over the past 3 months. She has been unable to take her sinemet so this will be restarted via NG tube. We discussed patients desire for a PEG and it is felt that this is not an intervention that she desires. The patient can blink her eyes in response to questions and is alert. She shakes her head yes/no in response to some questions. Dr. Ann updated on goals and the PC team will reevaluate the patient in 24 hrs. The patient is a DNRCC - A. (3) Palliative care encounter Current Visit: Yes Status: Acute (4) Parkinsonism Current Visit: Yes Status: Chronic Qualifiers: Parkinsonism type: Parkinson's disease Qualified Code(s): G20 - Parkinson's disease (5) Failure to thrive Current Visit: Yes Status: Chronic Qualifiers: Failure to thrive age range: in adult Qualified Code(s): R62.7 - Adult failure to thrive (6) UTI (urinary tract infection) Current Visit: Yes Status: Acute Qualifiers: Urinary tract infection type: acute cystitis Hematuria presence: with hematuria Qualified Code(s): N30.01 - Acute cystitis with hematuria Palliative-CN HPI - Data of Consult Patient: new to practice Consult date: 03/27/19 Requesting Physician: Shai Nichols MD Primary Care Provider: Yan Jacob MD - Consult Narrative Palliative Care/Comfort Measures: Palliative care Reason for consult: Goals of Care History of present illness: Ms. Lofton is an 83-year-old female with past medical history of Parkinson's, who presented to the ED on 03/26/2019 altered mental status, weakness and difficulty swallowing. In the ED she was found to be profoundly dehydrated and urinalysis showed leukocyte esterase with white blood cells. Family states that patient has not been eating or drinking for the past several days. She reported dysphagia. She lives at home in care of 24 hour caregivers and her family. Patient admitted to medical unit but was transferred to ICU after suffering ARF and being intubated. Suspected sepsis from UTI. Upon this consult, the patient is intubated and mechanically ventilated. Her eyes are open and she can follow commands to blink her eyes in response to questions. He sons LALIT and Scottie are at her bedside. This palliative care consult is for goals of care discussion. CC: Shai Nichols MD - Time Spent with Patient Time: Total time spent is greater than 50% in coordination of care (as documented) at patient's floor/unit and/or counseling patient: Past Med Surg Social Fam HX - Past Medical History Source: old records reviewed, obtained from family, nursing notes reviewed Medical history: arthritis, asthma, cancer, dementia (Parkinsons), GERD, hypertension Psychiatric history: no psych history - Past Surgical History Surgical History: breast surgery, hip replacement - Social History Smoking Status: Never smoker Smokeless Tobacco Status: No Alcohol use: none Drug use: none Current living situation: Home - Independent Activity Level: Mostly sedentary Recent Out of Country Travel Within the Last 8 Weeks: No Exposure or Possible Exposure to Illness During Travel: No - Family History Mother History Unknown: Yes Living Status: Father History Unknown: Yes Living Status: Medications and Allergies Carbidopa/Levodopa 25/100 [Sinemet] 2 each PO TID 06/18/15 [History] Krill Oil/Carnation-3/Dha/Epa [Carnation-3 Krill Oil Softgel] 1 each PO DAILY 11/04/15 [History] Omeprazole [Prilosec] 20 mg PO DAILY 06/18/15 [History] Vitamin D3/Folic Acid [Ortho D 3,775 Unit-1 mg Cap] 2,000 units PO DAILY 06/18/15 [History] l Gasseri/B Bifidum/B Longum [Profind Capsule] 1 each PO DAILY 06/18/15 [History] Fluticasone Propionate Nasal [Flonase] 50 mcg NS BID PRN 06/22/17 [History] Rotigotine [Neupro] 1 each TD DAILY 06/22/17 [History] Calcium Carbonate/Vitamin D3 [Calcium 600 + Vit D Softgel] 1 each PO DAILY 01/02/18 [History] Albuterol Sulfate [Proair Hfa] 2 puff IH Q4H PRN 06/12/18 [History] Furosemide [Lasix] 20 mg PO DAILY 06/12/18 [History] Megestrol Acetate [Megace] 40 mg PO DAILY 06/12/18 [History] Polyethylene Glycol 3350 [MiraLAX] 17 gm PO DAILY PRN 06/12/18 [History] Tamsulosin HCl [Flomax] 0.4 mg PO DAILY 06/12/18 [History] Torsemide [Demadex] 0.5 - 1 tab PO DAILY PRN 06/12/18 [History] Venlafaxine [Effexor] 25 mg PO BID #180 tablet 07/26/18 [Rx] Allergy/AdvReac Type Severity Reaction Status Date / Time aspirin [ASA] Allergy Nausea Verified 03/26/19 22:02 Penicillins [PCN] Allergy Nausea Verified 03/26/19 22:02 ROS unobtainable: due to endotracheal tube - Constitutional Constitutional ROS PAL: decreased appetite, fatigue, weight loss - EENT Eyes: loss of vision, requires corrective lenses - Genitourinary Palliative ROS female: urinary urgency - Musculoskeletal Musculoskeletal ROS IM: muscle weakness, myalgias - Neurological Neurological ROS: tremor(s) - Psychiatric Psychiatric general PM: change in appetite Palliative Care-Exam - Constitutional Vitals: Temp Pulse Resp BP Pulse Ox 101.8 F H 98 18 107/90 98 03/27/19 13:00 03/27/19 13:00 03/27/19 13:00 03/27/19 13:00 03/27/19 13:00 General appearance: Present: cooperative, no acute distress - Head Head Exam: Present: atraumatic, normal inspection - Eye Eye exam: Present: normal appearance, PERRL - ENT ENT exam: Present: mucous membranes dry Additional comments: scant blood to tongue - Expanded ENT Exam Teeth exam: Present: normal external inspection - Respiratory Respiratory exam: Present: decreased breath sounds - Expanded Respiratory Exam Location: decreased breath sounds: Left, Right, Lower - Cardiovascular Cardiovascular exam: Present: RRR, +S1, +S2 - Expanded Cardiovascular Exam Peripheral pulses: 1+: Femoral (L) PM, Femoral (R) PM, Posterior Tibialis (L), Posterior Tibialis (R), Dorsalis Pedis (L) PM, Dorsalis Pedis (R) PM, 2+: Carotid (L) PM, Carotid (R) PM, Radial (L), Radial (R) - GI/Abdominal Exam GI/Abdominal exam: Present: soft - Catheter Type: Urethral (Krishna) Additional comments: Clear yellow urine - Expanded Upper Extremities Exam Shoulder exam: Present: tenderness Upper Arm exam: Present: tenderness Elbow exam: Present: tenderness Forearm wrist exam: Present: tenderness Hand wrist exam: Present: tenderness - Expanded Lower Extremities Exam Hip exam: Present: tenderness Upper Leg exam: Present: tenderness Knee exam: Present: tenderness Lower Leg exam: Present: tenderness - Back Exam Back exam: Present: CVA tenderness (R) - Neurological Exam Neurological exam: Present: alert - Expanded Neurological Exam Neuro motor strength exam: LUE: 3, RUE: 3, LLE: 3, RLE: 3 Coma Scale Eye Opening: Spontaneous Coma Scale Motor Response: Obeys Commands Coma Scale Verbal Response: Oriented Coma Scale Total: 15 - Psychiatric Psychiatric exam: Present: flat affect - Skin Skin exam: Present: pallor, warm Internal Medicine - CN: Reslt - Labs CBC & Chem 7: 03/27/19 04:23 03/27/19 09:54 Labs: Short CBC 03/26/19 03/27/19 Range/Units 22:25 04:23 WBC 10.6 14.3 H (4.3-11.1) K/mcL Hgb 14.5 13.9 (11.5-15.4) g/dL Hct 47.8 H 47.2 H (35.3-44.9) % Plt Count 198 184 (140-400) K/mcL Neutrophils # 8.5 12.8 H (1.6-8.9) K/mcL BMP 03/26/19 03/27/19 03/27/19 22:25 04:23 09:54 Sodium 147 H 149 H 147 H Potassium 3.9 4.9 D 4.0 Chloride 100 104 110 H Carbon Dioxide 39 H 37 H 31 H BUN 32 H 30 H 29 H Creatinine 0.90 0.93 0.77 Glucose 103 163 H 62 L Calcium 10.4 H 10.1 8.5 L Liver Function 03/27/19 Range/Units 04:23 Total Bilirubin 0.5 (0.3-1.0) mg/dL AST 22 (13-39) Units/L ALT 19 (7-52) Units/L Alkaline Phosphatase 54 (34-104) Units/L Albumin 4.0 (3.5-5.7) g/dL Urine 03/26/19 Range/Units 23:55 Urine Color Yellow (Yellow) Urine Clarity Cloudy A (Clear) Urine pH 5.5 (5.0-8.0) pH Units Ur Specific Coin 1.021 (1.010-1.025) Urine Protein 100 H (Neg-Trace) mg/dL Urine Glucose (UA) Normal (Normal) mg/dL - ABG Interpretation ABG results: ABG ABG pH 7.43 pH Units (7.32-7.45) D 03/27/19 05:32 ABG pCO2 52 mmHg (35-45) H D 03/27/19 05:32 ABG pO2 102 mmHg (85-104) D 03/27/19 05:32 ABG O2 Saturation 98 % (95-98) 03/27/19 05:32 PT/INR, D-dimer PT 14.1 Seconds (9.4-12.1) H 03/27/19 09:54 - Impressions Impressions Chest X-Ray 03/26/19 22:00 IMPRESSION: No acute abnormality identified. D/ / Blake Ledezma MD / Blake Ledezma MD Interpreting Provider: Blake Ledezma MD Head CT 03/26/19 22:01 IMPRESSION: 1. No intracranial hemorrhage or acute transcortical infarct. 2. Redemonstration of mild white matter hypoattenuation likely the sequela of chronic small vessel ischemia. If there is persistent clinical concern for acute ischemia, MRI would be the more sensitive modality. D/ / Gavino Gamino / Gavino Gamino Interpreting Provider: Gavino Gamino Echocardiogram 03/27/19 02:51 Impressions: LVEF 65-70%. Mild concentric left ventricular hypertrophy. Mild left ventricular diastolic dysfunction. Normal right ventricular structure and function. No significant valvular dysfunction. No evidence of pulmonary hypertension. Left Ventricular Wall Motion: Rest Echo Findings All wall segments showed normal motion. Findings: Study Quality * Technically sub-optimal due to poor echocardiographic windows. ECG Findings * Normal sinus rhythm. Left Ventricle * LVEF 65-70%. * Normal LV chamber size and systolic function. * Mild concentric left ventricular hypertrophy. * Mild left ventricular diastolic dysfunction. Right Ventricle * Normal right ventricular structure and function. Left Atrium * Normal left atrial size. Right Atrium * Normal right atrial size. Interatrial Septum * Interatrial septum not well evaluated. Aortic Valve * Trileaflet aortic valve. * Mildly calcified aortic valve leaflets. * No aortic stenosis. * No aortic regurgitation. Mitral Valve * Normal mitral valve structure. * No mitral stenosis. * Trace mitral regurgitation. Tricuspid Valve * Normal tricuspid valve structure. * No tricuspid stenosis. * Trace tricuspid regurgitation. * Unable to estimate RVSP due to lack of TR jet. * No evidence of pulmonary hypertension. * Estimated RA pressure is 3 mmHg. Pulmonic Valve * Pulmonic valve is not well visualized. * No pulmonic stenosis. * No pulmonic regurgitation. Aorta * Normally sized aortic root. Pericardium * The pericardium appears normal. IVC * The IVC is not dilated. * > 50% respiratory change Chest X-Ray 03/27/19 03:47 IMPRESSION: ET tube low lying. Recommend pulling back by approximately 4 cm. NG tube in satisfactory position. Left pleural effusion versus pleural thickening. D/ / Shilo Marks MD / Shilo Marks MD Interpreting Provider: Shilo Marks MD Consult Discharge Plan - Plan Referrals: Yan Jacob MD [Primary Care Provider] - Palliative Quality Palliative Quality: Screen for Code Status: Yes, Screen for Goals of Care: Yes, Screen for Pain: Yes, Screen for Nausea/Vomitting: Yes Code Status: 03/27/19 02:47 Resuscitation Status: Active [RES] Routine Comment: Resuscitation Status: DNR-Comfort Care-Arrest Palliative Scale - Palliative Performance Scale How ambulatory is this patient?: Mainly in bed What is patient's level of activity and evidence of disease?: Unable to do most activity, Extensive disease How much self-care assistance does patient require?: Total care How much oral intake does the patient have?: Mouth care only What is this patient's level of consciousness?: Full Palliative Performance Score: 40 %
[2019-03-27] MEDS ORDERED: Acetaminophen IV 1,000 MG/100 ML INFUS..BTL IVPB ONE (15:42)
[2019-03-27 15:51] LABS: Creatine Kinase 289 Units/L (30-223)
[2019-03-27] MEDS: Norepinephrine 4 MG in D5% in Water 250 ML IVC SCH (17:43)
[2019-03-27] MEDS ORDERED: 0.9 % Sodium Chloride 1,000 ML IVC SCH (18:30)
--- NOTE | 2019-03-27 19:46 | Electrocardiograph Report ---
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
[2019-03-28] MEDS: MetroNIDAZOLE 500 MG/100 ML 500 MG/100 ML BAG IVPB SCH ×3 (00:15→17:06)
[2019-03-28] MEDS: Artificial Tears SOLN 15 ML BOTTLE BOTH EYES SCH ×6 (00:15→21:21)
[2019-03-28] MEDS: cefTRIAXone 2,000 MG in Water for inj. (sterile) 20 ML IVP SCH (02:52)
[2019-03-28 04:10] LABS: VBG Ionized Calcium 1.11 mmol/L (1.15-1.35)
[2019-03-28 04:35] LABS: ABG Base Excess 2 mEq/L (-2 to 3); ABG HCO3 24 mEq/L (21-27); ABG Oxygen Saturation 98 % (95-98); ABG PCO2 29 mmHg (35-45); ABG PH 7.53 pH Units (7.32-7.45); ABG PO2 92 mmHg (85-104); ABG TCO2 25 mEq/L (20-26); Blood Gas Modality VC; Blood Gas PEEP 5 cm H2O; Blood Gas VT 380 cc
[2019-03-28 04:38] LABS: BUN/Creatinine Ratio 31 (6-26); Blood Urea Nitrogen 24 mg/dL (8-23); Calcium 8.7 mg/dL (8.6-10.3); Carbon Dioxide 26 mEq/L (23-29); Chloride 105 mEq/L (98-107); Glucose 89 mg/dL (70-105); Magnesium 1.5 mg/dL (1.6-2.6); Osmolality,Calculated 298 (280-300); Phosphorous 1.7 mg/dL (2.7-4.5); Potassium 3.1 mEq/L (3.5-5.1); Sodium 142 mEq/L (136-145); eGFR For African Americans > 60 (> 60); eGFR For Non-African Americans > 60 (> 60)
[2019-03-28] MEDS: Pantoprazole 40 MG VIAL IVP SCH (05:04)
[2019-03-28] MEDS: *HR* Heparin 5,000 UNIT/ML VIAL SQ SCH ×2 (05:04→17:07)
[2019-03-28 05:10] LABS: Basophils % 0.2 %; Hematocrit 33.1 % (35.3-44.9); Hemoglobin 10.8 g/dL (11.5-15.4); Immature Granulocytes % 0.3 % (0-4); Lymphocytes # 1.2 K/mcL (0.6-4.6); Lymphocytes % 10.2 %; Mean Corpuscular HGB Conc 32.6 g/dL (31.6-35.5); Mean Corpuscular Hemoglobin 32.1 pg (28.0-33.3); Mean Corpuscular Volume 98.5 fL (83.0-100.0); Mean Platelet Volume 10.7 fL (9.4-12.4); Monocytes # 0.9 K/mcL (0.0-1.3); Monocytes % 8.1 %; Neutrophils # 9.4 K/mcL (1.6-8.9); Platelet Count 146 K/mcL (140-400); Red Blood Count 3.36 M/mcL (3.82-4.97); Red Cell Distribution Width 12.6 % (11.5-14.5); Segmented Neutrophils % 81.2 %; White Blood Count 11.6 K/mcL (4.3-11.1)
[2019-03-28] MEDS: Chlorhexidine Rinse 15 ML MOUTHWASH MM SCH ×2 (08:14→21:21)
[2019-03-28] MEDS: Acetaminophen 325 MG TABLET PO PRN (08:15)
[2019-03-28] MEDS: Carbidopa/Levodopa 25/100 TABLET PO SCH ×3 (08:15→21:21)
[2019-03-28] MEDS ORDERED: Dextrose Gel 15 GM/37.5 ML TUBE PO PRN ×2 (11:36)
[2019-03-28] MEDS ORDERED: *HR* Dextrose 50 % in Water (Syg) 50 ML SYRINGE IVP PRN (11:36)
[2019-03-28] MEDS ORDERED: D5% in Water 1,000 ML IVC PRN (11:36)
--- NOTE | 2019-03-28 11:41 | Palliative Progress Note ---
Date of Encounter: 03/28/19 Time of Encounter: 11:00 - Assessment and plan (1) Dysphagia Current Visit: Yes Status: Chronic Assessment and plan: Patient with advanced dysphagia r/t Parkinson's disease. TF on hold as patient is having a SBT. Dietary is following patient. Appreciate recommedations. Qualifiers: Dysphagia type: unspecified Qualified Code(s): R13.10 - Dysphagia, unspecified (2) Goals of care, counseling/discussion Current Visit: Yes Status: Acute Assessment and plan: Met with son/POA at bedside. Explained that goal is to extubate the patent today. Confirmed that patient would now be a DNRCC - A, DNI. The patient would not be reintubated and code status changed to DNRCC - A, DNI. Patient shook head yes to not reintubating. Son verbalized understanding. (3) Palliative care encounter Current Visit: Yes Status: Acute (4) Parkinsonism Current Visit: Yes Status: Chronic Qualifiers: Parkinsonism type: Parkinson's disease Qualified Code(s): G20 - Parkinson's disease (5) Failure to thrive Current Visit: Yes Status: Chronic Qualifiers: Failure to thrive age range: in adult Qualified Code(s): R62.7 - Adult failure to thrive (6) UTI (urinary tract infection) Current Visit: Yes Status: Acute Qualifiers: Urinary tract infection type: acute cystitis Hematuria presence: with hematuria Qualified Code(s): N30.01 - Acute cystitis with hematuria - Time Spent With Patient Total time spent is greater than 50% in coordination of care (as documented) at patient's floor/unit and/or counseling patient: less than 15 minutes - Subjective Interval history: Patient doing much better this AM. Family at bedside. Hoping to extubate patient today. Updated family on POC. - Constitutional Vitals: Abnormal lab results WBC 11.6 K/mcL (4.3-11.1) H 03/28/19 04:50 RBC 3.36 M/mcL (3.82-4.97) L 03/28/19 04:50 Hgb 10.8 g/dL (11.5-15.4) L D 03/28/19 04:50 Hct 33.1 % (35.3-44.9) L 03/28/19 04:50 MCV 111.1 fL (83.0-100.0) H 03/27/19 04:23 MCHC 29.4 g/dL (31.6-35.5) L 03/27/19 04:23 Neutrophils # 9.4 K/mcL (1.6-8.9) H 03/28/19 04:50 Lymphocytes # 0.5 K/mcL (0.6-4.6) L 03/27/19 04:23 Macrocytosis Present (Not Present) A 03/27/19 04:23 PT 14.1 Seconds (9.4-12.1) H 03/27/19 09:54 ABG pH 7.53 pH Units (7.32-7.45) H 03/28/19 04:32 ABG pCO2 29 mmHg (35-45) L 03/28/19 04:32 ABG pO2 175 mmHg (85-104) H 03/27/19 03:04 ABG HCO3 35 mEq/L (21-27) H 03/27/19 05:32 ABG Total CO2 36 mEq/L (20-26) H 03/27/19 05:32 ABG Base Excess 9 mEq/L (-2 to 3) H 03/27/19 05:32 Sodium 147 mEq/L (136-145) H 03/27/19 09:54 Potassium 3.1 mEq/L (3.5-5.1) L 03/28/19 04:00 Chloride 110 mEq/L (98-107) H 03/27/19 09:54 Carbon Dioxide 31 mEq/L (23-29) H 03/27/19 09:54 BUN 24 mg/dL (8-23) H 03/28/19 04:00 Est GFR (Non-Af Amer) 57 (> 60) L 03/27/19 04:23 BUN/Creatinine Ratio 31 (6-26) H 03/28/19 04:00 Glucose 62 mg/dL (70-105) L 03/27/19 09:54 POC Glucose 145 mg/dL (70-99) H 03/27/19 03:55 Calculated Osmolality 308 (280-300) H 03/27/19 09:54 Calcium 8.5 mg/dL (8.6-10.3) L 03/27/19 09:54 Venous Ioniz Calcium 1.11 mmol/L (1.15-1.35) L 03/28/19 04:04 Phosphorus 1.7 mg/dL (2.7-4.5) L 03/28/19 04:00 Magnesium 1.5 mg/dL (1.6-2.6) L 03/28/19 04:00 Creatine Kinase 289 Units/L (30-223) H 03/27/19 09:54 Urine Clarity Cloudy (Clear) A 03/26/19 23:55 Urine Protein 100 mg/dL (Neg-Trace) H 03/26/19 23:55 Urine Blood Trace (Negative) H 03/26/19 23:55 Urine Bilirubin Small (Negative) H 03/26/19 23:55 Ur Leukocyte Esterase Large (Negative) H 03/26/19 23:55 Urine Microscopic RBC 5-15 per hpf (0-3) H 03/26/19 23:55 Urine Microscopic WBC TNTC per hpf (0-3) H 03/26/19 23:55 Ur Squamous Epith Cells Many per lpf (None-Few) H 03/26/19 23:55 Ur Culture Indicated? YES (NO) A 03/26/19 23:55 - Head Head exam: Present: atraumatic, normal inspection - Eye Eye exam: Present: PERRL - ENT ENT exam: Present: mucous membranes moist - Neck Neck exam: Present: full ROM - Respiratory Respiratory exam: Present: decreased breath sounds - Expanded Respiratory Exam Location: decreased breath sounds: Left, Right, Lower - Cardiovascular Cardiovascular exam: Present: RRR, +S1, +S2 - GI/Abdominal GI/Abdominal exam: Present: normal bowel sounds, soft - Additional comments: Krishna intact. Draining clear yellow urine - Extremities Exam Extremities exam: Present: tenderness Additional comments: General rigidty to extremities from Parkinson's dx - Neurological Exam Neurological exam: Present: alert - Psychiatric Psychiatric exam: Present: flat affect - Skin Skin exam: Present: pallor, warm Palliative Quality Palliative Quality: Screen for Code Status: Yes, Screen for Goals of Care: Yes, Screen for Pain: Yes, Screen for Nausea/Vomitting: Yes Code Status: 03/27/19 02:47 Resuscitation Status: Active [RES] Routine Comment: Resuscitation Status: DNR-Comfort Care-Arrest 03/28/19 11:34 DNR [Resuscitation Status: Active] [RES] Routine Comment: Resuscitation Status: [id number] - Labs CBC & Chem 7: 03/28/19 04:50 03/28/19 04:00 Labs: Laboratory Results - last 24 hr 03/27/19 03/27/19 03/27/19 03:55 09:54 12:38 WBC RBC Hgb Hct MCV MCH MCHC RDW Plt Count MPV Immature Gran % Seg Neutrophils % Lymphocytes % Monocytes % Eosinophils % Basophils % Neutrophils # Lymphocytes # Monocytes # Eosinophils # Basophils # Sample Site ABG pH ABG pCO2 ABG pO2 ABG HCO3 ABG Total CO2 ABG O2 Saturation ABG Base Excess Sharath Test Respiration Rate O2 Delivery Device Blood Gas Modality Inspired O2 Tidal Volume PEEP Sodium 147 H Potassium 4.0 Chloride 110 H Carbon Dioxide 31 H BUN 29 H Creatinine 0.77 Est GFR ( Amer) > 60 Est GFR (Non-Af Amer) > 60 BUN/Creatinine Ratio 38 H Glucose 62 L POC Glucose 145 H Calculated Osmolality 308 H Lactic Acid Calcium 8.5 L Venous Ioniz Calcium Phosphorus Magnesium Creatine Kinase 289 H Nasal Screen MRSA (PCR) NOT DETECTED Specimen Rejected 03/27/19 03/28/19 03/28/19 20:04 04:00 04:04 WBC RBC Hgb Hct MCV MCH MCHC RDW Plt Count MPV Immature Gran % Seg Neutrophils % Lymphocytes % Monocytes % Eosinophils % Basophils % Neutrophils # Lymphocytes # Monocytes # Eosinophils # Basophils # Sample Site ABG pH ABG pCO2 ABG pO2 ABG HCO3 ABG Total CO2 ABG O2 Saturation ABG Base Excess Sharath Test Respiration Rate O2 Delivery Device Blood Gas Modality Inspired O2 Tidal Volume PEEP Sodium 142 Potassium 3.1 L Chloride 105 Carbon Dioxide 26 BUN 24 H Creatinine 0.78 Est GFR ( Amer) > 60 Est GFR (Non-Af Amer) > 60 BUN/Creatinine Ratio 31 H Glucose 89 POC Glucose Calculated Osmolality 298 Lactic Acid 1.5 Calcium 8.7 Venous Ioniz Calcium 1.11 L Phosphorus 1.7 L Magnesium 1.5 L Creatine Kinase Nasal Screen MRSA (PCR) Specimen Rejected 03/28/19 03/28/19 03/28/19 04:25 04:32 04:50 WBC 11.6 H RBC 3.36 L Hgb 10.8 L D Hct 33.1 L MCV 98.5 D MCH 32.1 MCHC 32.6 RDW 12.6 Plt Count 146 MPV 10.7 Immature Gran % 0.3 Seg Neutrophils % 81.2 Lymphocytes % 10.2 Monocytes % 8.1 Eosinophils % 0.0 Basophils % 0.2 Neutrophils # 9.4 H Lymphocytes # 1.2 Monocytes # 0.9 Eosinophils # 0.0 Basophils # 0.0 Sample Site R Radial ABG pH 7.53 H ABG pCO2 29 L ABG pO2 92 ABG HCO3 24 ABG Total CO2 25 ABG O2 Saturation 98 ABG Base Excess 2 Sharath Test Positive Respiration Rate 18 O2 Delivery Device Adult Vent Blood Gas Modality VC Inspired O2 40.0 Tidal Volume 380 PEEP 5 Sodium Potassium Chloride Carbon Dioxide BUN Creatinine Est GFR ( Amer) Est GFR (Non-Af Amer) BUN/Creatinine Ratio Glucose POC Glucose Calculated Osmolality Lactic Acid Calcium Venous Ioniz Calcium Phosphorus Magnesium Creatine Kinase Nasal Screen MRSA (PCR) Specimen Rejected MCV Delta - ABG Interpretation ABG results: ABG ABG pH 7.53 pH Units (7.32-7.45) H 03/28/19 04:32 ABG pCO2 29 mmHg (35-45) L 03/28/19 04:32 ABG pO2 92 mmHg (85-104) 03/28/19 04:32 ABG O2 Saturation 98 % (95-98) 03/28/19 04:32 PT/INR, D-dimer PT 14.1 Seconds (9.4-12.1) H 03/27/19 09:54 Palliative Scale - Palliative Performance Scale How ambulatory is this patient?: Mainly in bed What is patient's level of activity and evidence of disease?: Unable to do most activity, Extensive disease How much self-care assistance does patient require?: Total care How much oral intake does the patient have?: Mouth care only What is this patient's level of consciousness?: Full Palliative Performance Score: 40 % Consult Discharge Plan - Plan Referrals: Yan Jacob MD [Primary Care Provider] -
[2019-03-28] MEDS: Norepinephrine 4 MG in D5% in Water 250 ML IVC SCH (11:46)
--- NOTE | 2019-03-28 13:55 | Pulmonology Progress Note ---
<Cecily Jules - Last Filed: 03/28/19 13:51> Date of Encounter: 03/28/19 Time of Encounter: 13:52 Assessment and Plan (1) Sepsis Current Visit: Yes Status: Acute Resolved. Likely secondary to UTI At presentation was not tachycardic or febrile At presentation noted to have temperature of 100.7, heart rate in the 90s with WBC 14.3 This morning white count has decreased to 11.6 and afebrile today Has responded appropriately to volume resuscitation Only required Levophed for 2 hours yesterday Continue ceftriaxone for UTI and IV Flagyl day 2 for aspiration pneumonia Qualifiers: Sepsis type: sepsis due to unspecified organism Severe sepsis acute organ dysfunction type: acute respiratory failure Acute respiratory failure type: with hypercapnia Severe sepsis shock status: without septic shock Qualified Code(s): A41.9 - Sepsis, unspecified organism; R65.20 - Severe sepsis without septic shock; J96.02 - Acute respiratory failure with hypercapnia (2) Acute hypercapnic respiratory failure Current Visit: Yes Status: Acute Presented to the ED due to worsening mental status Likely secondary to decreased muscle use from progressive Parkinson's disease At presentation was not hypoxic Shortly after admission yesterday was noted to be unresponsive and ABG showed pH of 6.94 with PCO2 of 150 Improving today will be extubated as responding to CPAP BiPAP after extubation (3) UTI (urinary tract infection) Current Visit: Yes Status: Acute Presented with altered mental status urinalysis showed leukocyte esterase with white blood cell count Likely uncomplicated UTI Continue ceftriaxone day 2 Urinalysis shows gram-negative rods speciation pending Qualifiers: Urinary tract infection type: site unspecified Hematuria presence: without hematuria Qualified Code(s): N39.0 - Urinary tract infection, site not specified (4) Parkinsons disease Current Visit: Yes Status: Chronic History of progressed Parkinson's disease Prescribed Sinemet at home but has not been taking it due to dysphagia Concern for severely progressed Parkinson's Will restart home Sinemet (5) Aspiration pneumonia Current Visit: Yes Status: Suspected Concern for aspiration pneumonia given dysphagia Was intubated at presentation, chest x-ray at presentation did not show any significant finding Continue to treat for aspiration pneumonia with IV Flagyl day 2 of 7 Qualifiers: Aspiration pneumonia type: unspecified Laterality: unspecified laterality Lung location: unspecified part of lung Qualified Code(s): J69.0 - Pneumonitis due to inhalation of food and vomit (6) Dysphagia Current Visit: Yes Status: Chronic Dysphagia likely secondary to progressive Parkinson's disease Family reports for quite some time she has had poor oral intake and often needs to be fed small bites at a time Received feeding with tube feeding during intubation She does not want a PEG tube Qualifiers: Dysphagia type: unspecified Qualified Code(s): R13.10 - Dysphagia, unspecified (7) Failure to thrive Current Visit: Yes Status: Chronic BMI of 17.3 Likely secondary to poor oral intake Receiving tube feeding Appears to have refeeding syndrome after starting tube feeding decreased to feed Electrolyte protocol initiated prior to starting tube feeding Speech evaluation prior to initiating oral intake Qualifiers: Failure to thrive age range: in adult Qualified Code(s): R62.7 - Adult failure to thrive (8) Dehydration Current Visit: Yes Status: Acute Dehydration likely secondary to decreased oral intake Per family patient has been having difficulty swallowing for quite some time progressed the past 3 days prior to admission Received significant IV hydration (9) DVT prophylaxis Current Visit: Yes Status: Acute Subcutaneous heparin Subjective Interval history: Ms. Lofton was seen at bedside this morning. She was intubated and resting comfortably and following commands. Afternoon family was at bedside and patient as well as family wanted the ET tube out. Objective PUL Vital signs: Last Vital Signs Temp 98.6 F 03/28/19 11:45 Pulse 86 03/28/19 13:00 Resp 28 03/28/19 13:00 BP 137/89 03/28/19 13:00 Pulse Ox 100 03/28/19 13:00 General appearance: no acute distress, alert Eyes: nonicteric ENT: oropharynx moist Neck: supple Effort: normal Auscultation: bilateral: diminished breath sounds Cardiovascular: regular rate and rhythm Gastrointestinal: normoactive bowel sounds, soft, non-tender Extremities: no cyanosis, no edema, pulses normal Musculoskeletal: no deformities pupils equal and round, unable to assess due to mental status, other (Follows commands) mood appropriate, affect normal Ventilator Settings Ventilator Settings: Ventilator Settings, Last 8 Hours Ventilator Tidal Volume 280 Setting Ventilator Tidal Volume 280 Setting Ventilator Tidal Volume 280 Setting Ventilator Tidal Volume 280 Setting Ventilator Tidal Volume 280 Setting Ventilator Tidal Volume 380 Setting Ventilator Tidal Volume 380 Setting Ventilator Tidal Volume 380 Setting Ventilator Respiratory Rate 16 Setting Ventilator Respiratory Rate 16 Setting Ventilator Respiratory Rate 16 Setting Ventilator Respiratory Rate 16 Setting Ventilator Respiratory Rate 16 Setting Ventilator Respiratory Rate 16 Setting Ventilator Respiratory Rate 16 Setting Ventilator Respiratory Rate 16 Setting Actual Respiratory Rate 28 Actual Respiratory Rate 27 Actual Respiratory Rate 21 Actual Respiratory Rate 23 Actual Respiratory Rate 22 Actual Respiratory Rate 21 Actual Respiratory Rate 19 Actual Respiratory Rate 16 Actual Respiratory Rate 16 Actual Respiratory Rate 16 Positive End Expiratory 5 Pressure Positive End Expiratory 5 Pressure Positive End Expiratory 5 Pressure Positive End Expiratory 5 Pressure Positive End Expiratory 5 Pressure Positive End Expiratory 5 Pressure Positive End Expiratory 5 Pressure Positive End Expiratory 5 Pressure Peak Inspiratory Airway 25 Pressure Peak Inspiratory Airway 19 Pressure Peak Inspiratory Airway 27 Pressure Results - Laboratory Findings CBC and BMP: 03/28/19 04:50 03/28/19 04:00 ABG ABG pH 7.53 pH Units (7.32-7.45) H 03/28/19 04:32 ABG pCO2 29 mmHg (35-45) L 03/28/19 04:32 ABG pO2 92 mmHg (85-104) 03/28/19 04:32 ABG O2 Saturation 98 % (95-98) 03/28/19 04:32 PT/INR, D-dimer PT 14.1 Seconds (9.4-12.1) H 03/27/19 09:54 Abnormal lab findings: Abnormal lab results WBC 11.6 K/mcL (4.3-11.1) H 03/28/19 04:50 RBC 3.36 M/mcL (3.82-4.97) L 03/28/19 04:50 Hgb 10.8 g/dL (11.5-15.4) L D 03/28/19 04:50 Hct 33.1 % (35.3-44.9) L 03/28/19 04:50 MCV 111.1 fL (83.0-100.0) H 03/27/19 04:23 MCHC 29.4 g/dL (31.6-35.5) L 03/27/19 04:23 Neutrophils # 9.4 K/mcL (1.6-8.9) H 03/28/19 04:50 Lymphocytes # 0.5 K/mcL (0.6-4.6) L 03/27/19 04:23 Macrocytosis Present (Not Present) A 03/27/19 04:23 PT 14.1 Seconds (9.4-12.1) H 03/27/19 09:54 ABG pH 7.53 pH Units (7.32-7.45) H 03/28/19 04:32 ABG pCO2 29 mmHg (35-45) L 03/28/19 04:32 ABG pO2 175 mmHg (85-104) H 03/27/19 03:04 ABG HCO3 35 mEq/L (21-27) H 03/27/19 05:32 ABG Total CO2 36 mEq/L (20-26) H 03/27/19 05:32 ABG Base Excess 9 mEq/L (-2 to 3) H 03/27/19 05:32 Sodium 147 mEq/L (136-145) H 03/27/19 09:54 Potassium 3.1 mEq/L (3.5-5.1) L 03/28/19 04:00 Chloride 110 mEq/L (98-107) H 03/27/19 09:54 Carbon Dioxide 31 mEq/L (23-29) H 03/27/19 09:54 BUN 24 mg/dL (8-23) H 03/28/19 04:00 Est GFR (Non-Af Amer) 57 (> 60) L 03/27/19 04:23 BUN/Creatinine Ratio 31 (6-26) H 03/28/19 04:00 Glucose 62 mg/dL (70-105) L 03/27/19 09:54 POC Glucose 145 mg/dL (70-99) H 03/27/19 03:55 Calculated Osmolality 308 (280-300) H 03/27/19 09:54 Calcium 8.5 mg/dL (8.6-10.3) L 03/27/19 09:54 Venous Ioniz Calcium 1.11 mmol/L (1.15-1.35) L 03/28/19 04:04 Phosphorus 1.7 mg/dL (2.7-4.5) L 03/28/19 04:00 Magnesium 1.5 mg/dL (1.6-2.6) L 03/28/19 04:00 Creatine Kinase 289 Units/L (30-223) H 03/27/19 09:54 Urine Clarity Cloudy (Clear) A 03/26/19 23:55 Urine Protein 100 mg/dL (Neg-Trace) H 03/26/19 23:55 Urine Blood Trace (Negative) H 03/26/19 23:55 Urine Bilirubin Small (Negative) H 03/26/19 23:55 Ur Leukocyte Esterase Large (Negative) H 03/26/19 23:55 Urine Microscopic RBC 5-15 per hpf (0-3) H 03/26/19 23:55 Urine Microscopic WBC TNTC per hpf (0-3) H 03/26/19 23:55 Ur Squamous Epith Cells Many per lpf (None-Few) H 03/26/19 23:55 Ur Culture Indicated? YES (NO) A 03/26/19 23:55 - Microbiology Findings Microbiology Findings: Microbiology, Last 48 Hours 03/26/19 23:55 Urine Culture - Preliminary Urine,Clean Catch Gram Negative Joshua 03/27/19 04:24 Blood Culture - Preliminary Peripheral Venipuncture Culture is incubating and being continuously monitored for growth. Final report to follow. 03/27/19 04:10 Blood Culture - Preliminary Peripheral Venipuncture Culture is incubating and being continuously mon itored for growth. Final report to follow. - Clinical Findings Intake & Output: Intake & Output 03/27/19 03/28/19 03/28/19 23:59 07:59 15:59 Intake Total 1328 / 2958 1606 / 1886 280 / 1886 Output Total 60 / 385 360 / 360 Balance 1268 / 2573 1246 / 1526 280 / 1526 Consult Discharge Plan - Plan Referrals: Yan Jacob MD [Primary Care Provider] - <Jenny Ann - Last Filed: 03/28/19 20:37> Date of Encounter: 03/28/19 Objective PUL Vital signs: Last Vital Signs Temp 99.3 F 03/28/19 16:45 Pulse 92 03/28/19 18:08 Resp 32 03/28/19 18:08 BP 151/93 03/28/19 18:08 Pulse Ox 97 03/28/19 18:08 Ventilator Settings Ventilator Settings: Ventilator Settings, Last 8 Hours Actual Respiratory Rate 28 Results - Laboratory Findings CBC and BMP: 03/28/19 04:50 03/28/19 16:46 ABG ABG pH 7.53 pH Units (7.32-7.45) H 03/28/19 04:32 ABG pCO2 29 mmHg (35-45) L 03/28/19 04:32 ABG pO2 92 mmHg (85-104) 03/28/19 04:32 ABG O2 Saturation 98 % (95-98) 03/28/19 04:32 PT/INR, D-dimer PT 14.1 Seconds (9.4-12.1) H 03/27/19 09:54 Abnormal lab findings: Abnormal lab results WBC 11.6 K/mcL (4.3-11.1) H 03/28/19 04:50 RBC 3.36 M/mcL (3.82-4.97) L 03/28/19 04:50 Hgb 10.8 g/dL (11.5-15.4) L D 03/28/19 04:50 Hct 33.1 % (35.3-44.9) L 03/28/19 04:50 MCV 111.1 fL (83.0-100.0) H 03/27/19 04:23 MCHC 29.4 g/dL (31.6-35.5) L 03/27/19 04:23 Neutrophils # 9.4 K/mcL (1.6-8.9) H 03/28/19 04:50 Lymphocytes # 0.5 K/mcL (0.6-4.6) L 03/27/19 04:23 Macrocytosis Present (Not Present) A 03/27/19 04:23 PT 14.1 Seconds (9.4-12.1) H 03/27/19 09:54 ABG pH 7.53 pH Units (7.32-7.45) H 03/28/19 04:32 ABG pCO2 29 mmHg (35-45) L 03/28/19 04:32 ABG pO2 175 mmHg (85-104) H 03/27/19 03:04 ABG HCO3 35 mEq/L (21-27) H 03/27/19 05:32 ABG Total CO2 36 mEq/L (20-26) H 03/27/19 05:32 ABG Base Excess 9 mEq/L (-2 to 3) H 03/27/19 05:32 Sodium 147 mEq/L (136-145) H 03/27/19 09:54 Potassium 3.1 mEq/L (3.5-5.1) L 03/28/19 04:00 Chloride 110 mEq/L (98-107) H 03/27/19 09:54 Carbon Dioxide 31 mEq/L (23-29) H 03/27/19 09:54 BUN 24 mg/dL (8-23) H 03/28/19 04:00 Est GFR (Non-Af Amer) 57 (> 60) L 03/27/19 04:23 BUN/Creatinine Ratio 31 (6-26) H 03/28/19 04:00 Glucose 62 mg/dL (70-105) L 03/27/19 09:54 POC Glucose 145 mg/dL (70-99) H 03/27/19 03:55 Calculated Osmolality 308 (280-300) H 03/27/19 09:54 Calcium 8.5 mg/dL (8.6-10.3) L 03/27/19 09:54 Venous Ioniz Calcium 1.13 mmol/L (1.15-1.35) L 03/28/19 17:03 Phosphorus 1.7 mg/dL (2.7-4.5) L 03/28/19 04:00 Magnesium 1.5 mg/dL (1.6-2.6) L 03/28/19 04:00 Creatine Kinase 289 Units/L (30-223) H 03/27/19 09:54 Urine Clarity Cloudy (Clear) A 03/26/19 23:55 Urine Protein 100 mg/dL (Neg-Trace) H 03/26/19 23:55 Urine Blood Trace (Negative) H 03/26/19 23:55 Urine Bilirubin Small (Negative) H 03/26/19 23:55 Ur Leukocyte Esterase Large (Negative) H 03/26/19 23:55 Urine Microscopic RBC 5-15 per hpf (0-3) H 03/26/19 23:55 Urine Microscopic WBC TNTC per hpf (0-3) H 03/26/19 23:55 Ur Squamous Epith Cells Many per lpf (None-Few) H 03/26/19 23:55 Ur Culture Indicated? YES (NO) A 03/26/19 23:55 - Microbiology Findings Microbiology Findings: Microbiology, Last 48 Hours 03/26/19 23:55 Urine Culture - Preliminary Urine,Clean Catch Gram Negative Joshua 03/27/19 04:24 Blood Culture - Preliminary Peripheral Venipuncture Culture is incubating and being continuously monitored for growth. Final report to follow. 03/27/19 04:10 Blood Culture - Preliminary Peripheral Venipuncture Culture is incubating and being continuously monitored for growth. Final report to follow. - Clinical Findings Intake & Output: Intake & Output 03/28/19 03/28/19 03/28/19 07:59 15:59 23:59 Intake Total 1606 / 3046 1240 / 3046 200 / 3046 Output Total 360 / 885 325 / 885 200 / 885 Balance 1246 / 2161 915 / 2161 0 / 2161 - Attending Attestation I saw and evaluated this patient and my medical decision-making was reviewed with the Resident Physician. I agree with the documented findings, disposition and treatment plan as described except to the extent set forth below. We independently had [id number] contact with the patient I spent 50 minutes of Critical Care time with this patient. It involved decision making of high complexity to assess, manipulate, and support vital organ system failure and/or to prevent further life threatening deterioration of the patient's condition. The time involved in the performance of separately reportable procedures was not counted toward critical care time. Patient seen and examined at bedside Labs, radiology, chart personally reviewed. Management was reviewed during multidisciplinary critical care rounds. 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 Cards: Patient is hemodynamically stable patient overnight required a few hours of norepinephrine drip overnight FEN-GI: Will need a formal swallow eval patient should be nothing by mouth until then Renal: Labs and output reviewed ID: To cover with broad-spectrum antibiotics for aspiration pneumonia and UTI Heme/Onc: Labs reviewed Endo: Glucose Monitored Integ/MSK: Skin Care per routine ICU Nursing Protocol to prevent ulcers. Lines: All lines examined without evidence of infection : Dispo: critically ill CODE:[id number]
--- NOTE | 2019-03-28 15:52 | Event Note ---
Date of Encounter: 03/28/19 Time of Encounter: 16:15 Patient extubated and is now on Bipap. Tolerating well. Son/POA at bedside. Discussed next steps in goals of care. Patient with dysphagia. Recommended having speech services consulted to evaluate patients swallow abilities. Patient with hx of progressive Parkinson's dx and overall declining function. Discussed patients living will and desires for not wanting artificial nutrition in a terminal condition. Son verbalized understanding. Case discussed with Dr. Jules. Will consult speech and consider MBS evaluation for AM. Hopefully, patient will be able to have Bipap removed to participate in conversation regarding desires for PEG if swallow eval is failed. I explained that hospice services should be considered if patient declines having PEG inserted. Patient will DC home in the care of her 24 hr caregivers and family. Dr. Kaminski will f/u with patient in AM.
[2019-03-28 17:05] LABS: VBG Ionized Calcium 1.13 mmol/L (1.15-1.35)
[2019-03-28 17:21] LABS: Magnesium 1.9 mg/dL (1.6-2.6); Phosphorous 3.6 mg/dL (2.7-4.5); Potassium 3.7 mEq/L (3.5-5.1)
[2019-03-29] MEDS: MetroNIDAZOLE 500 MG/100 ML 500 MG/100 ML BAG IVPB SCH ×4 (00:26→23:45)
[2019-03-29] MEDS: Artificial Tears SOLN 15 ML BOTTLE BOTH EYES SCH ×7 (00:26→23:46)
[2019-03-29] MEDS: Pantoprazole 40 MG VIAL IVP SCH (04:49)
[2019-03-29] MEDS: cefTRIAXone 2,000 MG in Water for inj. (sterile) 20 ML IVP SCH (04:49)
[2019-03-29] MEDS: *HR* Heparin 5,000 UNIT/ML VIAL SQ SCH ×2 (04:50→16:56)
[2019-03-29 05:17] LABS: Hematocrit 39.4 % (35.3-44.9); Mean Corpuscular HGB Conc 32.2 g/dL (31.6-35.5); Mean Corpuscular Hemoglobin 32.2 pg (28.0-33.3); Mean Platelet Volume 10.3 fL (9.4-12.4); Platelet Count 172 K/mcL (140-400); Red Blood Count 3.94 M/mcL (3.82-4.97); Red Cell Distribution Width 12.6 % (11.5-14.5); White Blood Count 14.8 K/mcL (4.3-11.1)
[2019-03-29 05:18] LABS: Hemoglobin 12.7 g/dL (11.5-15.4)
[2019-03-29 05:44] LABS: Magnesium 1.8 mg/dL (1.6-2.6); Phosphorous 3.2 mg/dL (2.7-4.5)
[2019-03-29 05:45] LABS: BUN/Creatinine Ratio 23 (6-26); Blood Urea Nitrogen 14 mg/dL (8-23); Calcium 9.2 mg/dL (8.6-10.3); Carbon Dioxide 25 mEq/L (23-29); Chloride 106 mEq/L (98-107); Glucose 67 mg/dL (70-105); Magnesium 1.8 mg/dL (1.6-2.6); Osmolality,Calculated 295 (280-300); Phosphorous 3.2 mg/dL (2.7-4.5); Potassium 4.5 mEq/L (3.5-5.1); Sodium 143 mEq/L (136-145); eGFR For African Americans > 60 (> 60); eGFR For Non-African Americans > 60 (> 60)
[2019-03-29] MEDS: Chlorhexidine Rinse 15 ML MOUTHWASH MM SCH ×2 (07:53→21:01)
[2019-03-29] MEDS: *HR* Metoprolol 5 MG/5 ML VIAL IVP PRN ×2 (07:53→19:00)
[2019-03-29] MEDS: Carbidopa/Levodopa 25/100 TABLET PO SCH ×3 (09:55→21:01)
[2019-03-29] MEDS: *HR* Labetalol 20 MG/4 ML SYRINGE IVP PRN ×2 (09:59→23:57)
[2019-03-29] MEDS: Norepinephrine 4 MG in D5% in Water 250 ML IVC SCH (13:33)
--- NOTE | 2019-03-29 14:52 | Pulmonology Progress Note ---
<Cecily Jules - Last Filed: 03/29/19 14:49> Date of Encounter: 03/29/19 Time of Encounter: 14:51 Assessment and Plan (1) Sepsis Current Visit: Yes Status: Acute Resolved. No further episodes of tachycardia or fever Likely secondary to UTI At presentation was not tachycardic or febrile At presentation noted to have temperature of 100.7, heart rate in the 90s with WBC 14.3 This morning white count has decreased to 11.6 and afebrile today Has responded appropriately to volume resuscitation Only required Levophed for 2 hours yesterday Continue ceftriaxone for UTI and IV Flagyl day 3 for aspiration pneumonia Qualifiers: Sepsis type: sepsis due to unspecified organism Severe sepsis acute organ dysfunction type: acute respiratory failure Acute respiratory failure type: with hypercapnia Severe sepsis shock status: without septic shock Qualified Code(s): A41.9 - Sepsis, unspecified organism; R65.20 - Severe sepsis without septic shock; J96.02 - Acute respiratory failure with hypercapnia (2) Acute hypercapnic respiratory failure Current Visit: Yes Status: Acute Presented to the ED due to worsening mental status Likely secondary to decreased muscle use from progressive Parkinson's disease At presentation was not hypoxic Shortly after admission yesterday was noted to be unresponsive and ABG showed pH of 6.94 with PCO2 of 150 Extubated yesterday tolerating 3 liter nasal cannula (3) UTI (urinary tract infection) Current Visit: Yes Status: Acute Presented with altered mental status urinalysis showed leukocyte esterase with white blood cell count Urine culture shows Klebsiella pneumonia and gram-positive cocci Likely uncomplicated UTI Continue ceftriaxone day 3 Qualifiers: Urinary tract infection type: site unspecified Hematuria presence: without hematuria Qualified Code(s): N39.0 - Urinary tract infection, site not specified (4) Parkinsons disease Current Visit: Yes Status: Chronic History of progressed Parkinson's disease Prescribed Sinemet at home but has not been taking it due to dysphagia Concern for severely progressed Parkinson's Continue Sinemet (5) Aspiration pneumonia Current Visit: Yes Status: Suspected Concern for aspiration pneumonia given dysphagia Was intubated at presentation, chest x-ray at presentation did not show any significant finding Continue to treat for aspiration pneumonia with IV Flagyl day 3 of 7 Qualifiers: Aspiration pneumonia type: unspecified Laterality: unspecified laterality Lung location: unspecified part of lung Qualified Code(s): J69.0 - Pneumonitis due to inhalation of food and vomit (6) Dysphagia Current Visit: Yes Status: Chronic Dysphagia likely secondary to progressive Parkinson's disease Family reports for quite some time she has had poor oral intake and often needs to be fed small bites at a time Received feeding with tube feeding during intubation She does not want a PEG tube Awaiting barium swallow study this afternoon Qualifiers: Dysphagia type: unspecified Qualified Code(s): R13.10 - Dysphagia, unspecified (7) Failure to thrive Current Visit: Yes Status: Chronic BMI of 17.3 Likely secondary to poor oral intake Receiving tube feeding Appears to have refeeding syndrome after starting tube feeding decreased to feed Electrolyte protocol initiated prior to starting tube feeding Speech evaluation prior to initiating oral intake Qualifiers: Failure to thrive age range: in adult Qualified Code(s): R62.7 - Adult failure to thrive (8) Dehydration Current Visit: Yes Status: Resolved Dehydration likely secondary to decreased oral intake Per family, patient has been having difficulty swallowing for quite some time progressed the past 3 days prior to admission Hydrated with IV fluids Awaiting barium swallow study prior to start oral intake (9) DVT prophylaxis Current Visit: Yes Status: Acute Subcutaneous heparin Subjective Interval history: Ms. Lofton was seen at bedside this morning. She was intubated and resting comfortably and following commands. She was extubated yesterday. Denying any fever, chills, nausea, emesis, shortness of breath or chest pain. Objective PUL Vital signs: Last Vital Signs Temp 97.5 F L 03/29/19 11:45 Pulse 86 03/29/19 11:00 Resp 27 03/29/19 11:00 BP 141/84 03/29/19 11:00 Pulse Ox 100 03/29/19 11:00 General appearance: no acute distress, alert Eyes: nonicteric ENT: oropharynx moist Neck: supple Effort: normal Auscultation: bilateral: rhonchi Cardiovascular: regular rate and rhythm Gastrointestinal: normoactive bowel sounds, soft, non-tender Integumentary: normal Extremities: no cyanosis, no edema Musculoskeletal: no deformities normal mental status, pupils equal and round mood appropriate, affect normal Results - Laboratory Findings CBC and BMP: 03/29/19 05:10 03/29/19 05:10 ABG ABG pH 7.53 pH Units (7.32-7.45) H 03/28/19 04:32 ABG pCO2 29 mmHg (35-45) L 03/28/19 04:32 ABG pO2 92 mmHg (85-104) 03/28/19 04:32 ABG O2 Saturation 98 % (95-98) 03/28/19 04:32 PT/INR, D-dimer PT 14.1 Seconds (9.4-12.1) H 03/27/19 09:54 Abnormal lab findings: Abnormal lab results WBC 14.8 K/mcL (4.3-11.1) H 03/29/19 05:10 RBC 3.36 M/mcL (3.82-4.97) L 03/28/19 04:50 Hgb 10.8 g/dL (11.5-15.4) L D 03/28/19 04:50 Hct 33.1 % (35.3-44.9) L 03/28/19 04:50 MCV 111.1 fL (83.0-100.0) H 03/27/19 04:23 MCHC 29.4 g/dL (31.6-35.5) L 03/27/19 04:23 Neutrophils # 9.4 K/mcL (1.6-8.9) H 03/28/19 04:50 Lymphocytes # 0.5 K/mcL (0.6-4.6) L 03/27/19 04:23 Macrocytosis Present (Not Present) A 03/27/19 04:23 PT 14.1 Seconds (9.4-12.1) H 03/27/19 09:54 ABG pH 7.53 pH Units (7.32-7.45) H 03/28/19 04:32 ABG pCO2 29 mmHg (35-45) L 03/28/19 04:32 ABG pO2 175 mmHg (85-104) H 03/27/19 03:04 ABG HCO3 35 mEq/L (21-27) H 03/27/19 05:32 ABG Total CO2 36 mEq/L (20-26) H 03/27/19 05:32 ABG Base Excess 9 mEq/L (-2 to 3) H 03/27/19 05:32 Sodium 147 mEq/L (136-145) H 03/27/19 09:54 Potassium 3.1 mEq/L (3.5-5.1) L 03/28/19 04:00 Chloride 110 mEq/L (98-107) H 03/27/19 09:54 Carbon Dioxide 31 mEq/L (23-29) H 03/27/19 09:54 BUN 24 mg/dL (8-23) H 03/28/19 04:00 Est GFR (Non-Af Amer) 57 (> 60) L 03/27/19 04:23 BUN/Creatinine Ratio 31 (6-26) H 03/28/19 04:00 Glucose 67 mg/dL (70-105) L 03/29/19 05:10 POC Glucose 145 mg/dL (70-99) H 03/27/19 03:55 Calculated Osmolality 308 (280-300) H 03/27/19 09:54 Calcium 8.5 mg/dL (8.6-10.3) L 03/27/19 09:54 Venous Ioniz Calcium 1.13 mmol/L (1.15-1.35) L 03/28/19 17:03 Phosphorus 1.7 mg/dL (2.7-4.5) L 03/28/19 04:00 Magnesium 1.5 mg/dL (1.6-2.6) L 03/28/19 04:00 Creatine Kinase 289 Units/L (30-223) H 03/27/19 09:54 Urine Clarity Cloudy (Clear) A 03/26/19 23:55 Urine Protein 100 mg/dL (Neg-Trace) H 03/26/19 23:55 Urine Blood Trace (Negative) H 03/26/19 23:55 Urine Bilirubin Small (Negative) H 03/26/19 23:55 Ur Leukocyte Esterase Large (Negative) H 03/26/19 23:55 Urine Microscopic RBC 5-15 per hpf (0-3) H 03/26/19 23:55 Urine Microscopic WBC TNTC per hpf (0-3) H 03/26/19 23:55 Ur Squamous Epith Cells Many per lpf (None-Few) H 03/26/19 23:55 Ur Culture Indicated? YES (NO) A 03/26/19 23:55 - Microbiology Findings Microbiology Findings: Microbiology, Last 48 Hours 03/26/19 23:55 Urine Culture - Preliminary Urine,Clean Catch Klebsiella pneu.ssp pneumoniae Gram Positive Cocci - Clinical Findings Intake & Output: Intake & Output 03/28/19 03/29/19 03/29/19 23:59 07:59 15:59 Intake Total 400 / 3246 220 / 424 204 / 424 Output Total 800 / 1485 1875 / 2225 350 / 2225 Balance -400 / 1761 -1655 / -1801 -146 / -1801 Consult Discharge Plan - Plan Referrals: Yan Jacob MD [Primary Care Provider] - <Jenny Ann - Last Filed: 03/29/19 22:02> Date of Encounter: 03/29/19 Objective PUL Vital signs: Last Vital Signs Temp 97.5 F L 03/29/19 11:45 Pulse 84 03/29/19 20:00 Resp 21 03/29/19 18:00 BP 148/96 03/29/19 18:00 Pulse Ox 98 03/29/19 18:00 Results - Laboratory Findings CBC and BMP: 03/29/19 05:10 03/29/19 05:10 ABG ABG pH 7.53 pH Units (7.32-7.45) H 03/28/19 04:32 ABG pCO2 29 mmHg (35-45) L 03/28/19 04:32 ABG pO2 92 mmHg (85-104) 03/28/19 04:32 ABG O2 Saturation 98 % (95-98) 03/28/19 04:32 PT/INR, D-dimer PT 14.1 Seconds (9.4-12.1) H 03/27/19 09:54 Abnormal lab findings: Abnormal lab results WBC 14.8 K/mcL (4.3-11.1) H 03/29/19 05:10 RBC 3.36 M/mcL (3.82-4.97) L 03/28/19 04:50 Hgb 10.8 g/dL (11.5-15.4) L D 03/28/19 04:50 Hct 33.1 % (35.3-44.9) L 03/28/19 04:50 MCV 111.1 fL (83.0-100.0) H 03/27/19 04:23 MCHC 29.4 g/dL (31.6-35.5) L 03/27/19 04:23 Neutrophils # 9.4 K/mcL (1.6-8.9) H 03/28/19 04:50 Lymphocytes # 0.5 K/mcL (0.6-4.6) L 03/27/19 04:23 Macrocytosis Present (Not Present) A 03/27/19 04:23 PT 14.1 Seconds (9.4-12.1) H 03/27/19 09:54 ABG pH 7.53 pH Units (7.32-7.45) H 03/28/19 04:32 ABG pCO2 29 mmHg (35-45) L 03/28/19 04:32 ABG pO2 175 mmHg (85-104) H 03/27/19 03:04 ABG HCO3 35 mEq/L (21-27) H 03/27/19 05:32 ABG Total CO2 36 mEq/L (20-26) H 03/27/19 05:32 ABG Base Excess 9 mEq/L (-2 to 3) H 03/27/19 05:32 Sodium 147 mEq/L (136-145) H 03/27/19 09:54 Potassium 3.1 mEq/L (3.5-5.1) L 03/28/19 04:00 Chloride 110 mEq/L (98-107) H 03/27/19 09:54 Carbon Dioxide 31 mEq/L (23-29) H 03/27/19 09:54 BUN 24 mg/dL (8-23) H 03/28/19 04:00 Est GFR (Non-Af Amer) 57 (> 60) L 03/27/19 04:23 BUN/Creatinine Ratio 31 (6-26) H 03/28/19 04:00 Glucose 67 mg/dL (70-105) L 03/29/19 05:10 POC Glucose 145 mg/dL (70-99) H 03/27/19 03:55 Calculated Osmolality 308 (280-300) H 03/27/19 09:54 Calcium 8.5 mg/dL (8.6-10.3) L 03/27/19 09:54 Venous Ioniz Calcium 1.13 mmol/L (1.15-1.35) L 03/28/19 17:03 Phosphorus 1.7 mg/dL (2.7-4.5) L 03/28/19 04:00 Magnesium 1.5 mg/dL (1.6-2.6) L 03/28/19 04:00 Creatine Kinase 289 Units/L (30-223) H 03/27/19 09:54 Urine Clarity Cloudy (Clear) A 03/26/19 23:55 Urine Protein 100 mg/dL (Neg-Trace) H 03/26/19 23:55 Urine Blood Trace (Negative) H 03/26/19 23:55 Urine Bilirubin Small (Negative) H 03/26/19 23:55 Ur Leukocyte Esterase Large (Negative) H 03/26/19 23:55 Urine Microscopic RBC 5-15 per hpf (0-3) H 03/26/19 23:55 Urine Microscopic WBC TNTC per hpf (0-3) H 03/26/19 23:55 Ur Squamous Epith Cells Many per lpf (None-Few) H 03/26/19 23:55 Ur Culture Indicated? YES (NO) A 03/26/19 23:55 - Microbiology Findings Microbiology Findings: Microbiology, Last 48 Hours 03/26/19 23:55 Urine Culture - Preliminary Urine,Clean Catch Klebsiella pneu.ssp pneumoniae Gram Positive Cocci - Clinical Findings Intake & Output: Intake & Output 03/29/19 03/29/19 03/29/19 07:59 15:59 23:59 Intake Total 220 / 524 204 / 524 100 / 524 Output Total 1875 / 2675 350 / 2675 450 / 2675 Balance -1655 / -2151 -146 / -2151 -350 / -2151 - Attending Attestation Patient septic shock with acute hypoxic hypercapnic respiratory failure patient respiratory status is stable metabolic status is stable I saw and evaluated this patient and my medical decision-making was reviewed with the Resident Physician. I agree with the documented findings, disposition and treatment plan as described except to the extent set forth below. We independently had [id number] contact with the patient I spent 40 minutes of Critical Care time with this patient. It involved decision making of high complexity to assess, manipulate, and support vital organ system failure and/or to prevent further life threatening deterioration of the patient's condition. The time involved in the performance of separately reportable procedures was not counted toward critical care time. Patient seen and examined at bedside Labs, radiology, chart personally reviewed. Management was reviewed during multidisciplinary critical care rounds. HEAVY LIFT RIGGER: Patient is alert following commands does not engage in meaningful conversation today morning. Pulm: Patient has acceptable oxygenation and ventilation Cards: Patient is hemodynamically stable to control afterload and preload. FEN-GI: advance diet as tolerated Renal: Labs and output were reviewed ID: To continue the current regimen of antibiotics Heme/Onc: Labs reviewed Endo: Glucose Monitored Integ/MSK: Skin Care per routine ICU Nursing Protocol to prevent ulcers. Lines: All lines examined without evidence of infection : Dispo: DNRCA -DNI
[2019-03-29] MEDS ORDERED: E-Z-PAQUE (BARIUM SULF) SUSP 1 BOTTLE PO ONE (15:45)
--- NOTE | 2019-03-29 16:46 | Palliative Progress Note ---
Date of Encounter: 03/29/19 Time of Encounter: 16:40 - Assessment and plan (1) Goals of care, counseling/discussion Current Visit: Yes Status: Acute Assessment and plan: Engaged pt on discussion about what to do if she continues to fail swallow test. Pt refused to make a decision at this time and stated "I will decide when I get there". Son at the bedside, stated he wants to honor her advanced directives, but is thrown back by pt's reluctance to make a decision now. Palliative care will follow. (2) Dysphagia Current Visit: Yes Status: Chronic Assessment and plan: Modified barium swallow study completed revealing severe oral dysphagia. HEMATOLOGY SPECIALIST recommended completion of oral motor exercises to improve ability to bring liquids into oral cavity and manage bolus and NPO. Pt complaining of thirst. Recommend gentle IV hydration. Qualifiers: Dysphagia type: unspecified Qualified Code(s): R13.10 - Dysphagia, unspecified (3) Parkinsonism Current Visit: Yes Status: Chronic Assessment and plan: Pt appears somewhat improved, likely due to restarting Sinemet. However, pt is unable to receive the medicatio today due to dysphagia. Qualifiers: Parkinsonism type: Parkinson's disease Qualified Code(s): G20 - Parkinson's disease (4) Failure to thrive Current Visit: Yes Status: Chronic Qualifiers: Failure to thrive age range: in adult Qualified Code(s): R62.7 - Adult failure to thrive (5) Palliative care encounter Current Visit: Yes Status: Acute - Time Spent With Patient Total time spent is greater than 50% in coordination of care (as documented) at patient's floor/unit and/or counseling patient: 25 - 35 minutes - Subjective Interval history: Patient is s/p extubation, off BIPAP, doing well o oxygen nc. She is AAOx3, speaking in full sentences, but slurred and difficult to understand. he is aware that she failed the swallow test today, but complained to be thirsty. She has been having mouth swab with sponge. Son Ruthy and daughter were present at the bedside. - Constitutional Vitals: Abnormal lab results WBC 14.8 K/mcL (4.3-11.1) H 03/29/19 05:10 RBC 3.36 M/mcL (3.82-4.97) L 03/28/19 04:50 Hgb 10.8 g/dL (11.5-15.4) L D 03/28/19 04:50 Hct 33.1 % (35.3-44.9) L 03/28/19 04:50 MCV 111.1 fL (83.0-100.0) H 03/27/19 04:23 MCHC 29.4 g/dL (31.6-35.5) L 03/27/19 04:23 Neutrophils # 9.4 K/mcL (1.6-8.9) H 03/28/19 04:50 Lymphocytes # 0.5 K/mcL (0.6-4.6) L 03/27/19 04:23 Macrocytosis Present (Not Present) A 03/27/19 04:23 PT 14.1 Seconds (9.4-12.1) H 03/27/19 09:54 ABG pH 7.53 pH Units (7.32-7.45) H 03/28/19 04:32 ABG pCO2 29 mmHg (35-45) L 03/28/19 04:32 ABG pO2 175 mmHg (85-104) H 03/27/19 03:04 ABG HCO3 35 mEq/L (21-27) H 03/27/19 05:32 ABG Total CO2 36 mEq/L (20-26) H 03/27/19 05:32 ABG Base Excess 9 mEq/L (-2 to 3) H 03/27/19 05:32 Sodium 147 mEq/L (136-145) H 03/27/19 09:54 Potassium 3.1 mEq/L (3.5-5.1) L 03/28/19 04:00 Chloride 110 mEq/L (98-107) H 03/27/19 09:54 Carbon Dioxide 31 mEq/L (23-29) H 03/27/19 09:54 BUN 24 mg/dL (8-23) H 03/28/19 04:00 Est GFR (Non-Af Amer) 57 (> 60) L 03/27/19 04:23 BUN/Creatinine Ratio 31 (6-26) H 03/28/19 04:00 Glucose 67 mg/dL (70-105) L 03/29/19 05:10 POC Glucose 145 mg/dL (70-99) H 03/27/19 03:55 Calculated Osmolality 308 (280-300) H 03/27/19 09:54 Calcium 8.5 mg/dL (8.6-10.3) L 03/27/19 09:54 Venous Ioniz Calcium 1.13 mmol/L (1.15-1.35) L 03/28/19 17:03 Phosphorus 1.7 mg/dL (2.7-4.5) L 03/28/19 04:00 Magnesium 1.5 mg/dL (1.6-2.6) L 03/28/19 04:00 Creatine Kinase 289 Units/L (30-223) H 03/27/19 09:54 Urine Clarity Cloudy (Clear) A 03/26/19 23:55 Urine Protein 100 mg/dL (Neg-Trace) H 03/26/19 23:55 Urine Blood Trace (Negative) H 03/26/19 23:55 Urine Bilirubin Small (Negative) H 03/26/19 23:55 Ur Leukocyte Esterase Large (Negative) H 03/26/19 23:55 Urine Microscopic RBC 5-15 per hpf (0-3) H 03/26/19 23:55 Urine Microscopic WBC TNTC per hpf (0-3) H 03/26/19 23:55 Ur Squamous Epith Cells Many per lpf (None-Few) H 03/26/19 23:55 Ur Culture Indicated? YES (NO) A 03/26/19 23:55 Exam: Head Head exam: Present: atraumatic, normal inspection - Eye Eye exam: Present: PERRL - ENT ENT exam: Present: mucous membranes dry - Neck Neck exam: Present: full ROM - Respiratory Respiratory exam: Present: decreased breath sounds - Expanded Respiratory Exam Location: decreased breath sounds: Left, Right, Lower - Cardiovascular Cardiovascular exam: Present: RRR, +S1, +S2 - GI/Abdominal GI/Abdominal exam: Present: normal bowel sounds, soft - Additional comments: Krishna intact. Draining clear yellow urine - Extremities Exam Extremities exam: Present: tenderness Additional comments: General rigidty to extremities from Parkinson's dx - Neurological Exam Neurological exam: Present: AAO x3, slurred speech, overall stiffness. - Skin Skin exam: Present: pallor, warm Palliative Quality Palliative Quality: Screen for Code Status: Yes, Screen for Goals of Care: Yes, Screen for Pain: Yes, Screen for Nausea/Vomitting: Yes Code Status: 03/27/19 02:47 Resuscitation Status: Active [RES] Routine Comment: Resuscitation Status: DNR-Comfort Care-Arrest 03/28/19 11:34 DNR [Resuscitation Status: Active] [RES] Routine Comment: Resuscitation Status: [id number] - Labs CBC & Chem 7: 03/29/19 05:10 03/29/19 05:10 Labs: Laboratory Results - last 24 hr 03/28/19 03/28/19 03/28/19 11:30 16:46 17:03 WBC RBC Hgb Hct MCV MCH MCHC RDW Plt Count MPV Sodium Potassium 3.7 Chloride Carbon Dioxide BUN Creatinine Est GFR ( Amer) Est GFR (Non-Af Amer) BUN/Creatinine Ratio Glucose POC Glucose 71 Calculated Osmolality Calcium Venous Ioniz Calcium 1.13 L Phosphorus 3.6 Magnesium 1.9 03/29/19 03/29/19 03/29/19 04:00 05:10 05:10 WBC 14.8 H RBC 3.94 Hgb 12.7 D Hct 39.4 MCV 100.0 MCH 32.2 MCHC 32.2 RDW 12.6 Plt Count 172 MPV 10.3 Sodium 143 Potassium 4.5 Chloride 106 Carbon Dioxide 25 BUN 14 Creatinine 0.62 Est GFR ( Amer) > 60 Est GFR (Non-Af Amer) > 60 BUN/Creatinine Ratio 23 Glucose 67 L POC Glucose Calculated Osmolality 295 Calcium 9.2 Venous Ioniz Calcium Phosphorus 3.2 3.2 Magnesium 1.8 1.8 - Impressions Impressions Videofluoroscopic Swallow 03/29/19 15:00 IMPRESSION: Aborted examination. Repeat examination may be attempted, once patient's condition improves. Please see separate speech pathology report for full discussion of findings and recommendations. D/ / 03/29/2019 16:17:46 Martín Negron MD / bcarter Interpreting Provider: Martín Negron MD - ABG Interpretation ABG results: ABG ABG pH 7.53 pH Units (7.32-7.45) H 03/28/19 04:32 ABG pCO2 29 mmHg (35-45) L 03/28/19 04:32 ABG pO2 92 mmHg (85-104) 03/28/19 04:32 ABG O2 Saturation 98 % (95-98) 03/28/19 04:32 PT/INR, D-dimer PT 14.1 Seconds (9.4-12.1) H 03/27/19 09:54 Palliative Scale - Palliative Performance Scale How ambulatory is this patient?: Mainly in bed What is patient's level of activity and evidence of disease?: Unable to do most activity, Extensive disease How much self-care assistance does patient require?: Total care How much oral intake does the patient have?: Mouth care only What is this patient's level of consciousness?: Full Palliative Performance Score: 40 % Consult Discharge Plan - Plan Referrals: Yan Jacob MD [Primary Care Provider] -
[2019-03-29] MEDS: Ringers Solution, Lactated 1,000 ML IVC SCH (16:56)
[2019-03-30] MEDS: Ringers Solution, Lactated 1,000 ML IVC SCH (02:41)
[2019-03-30] MEDS: cefTRIAXone 2,000 MG in Water for inj. (sterile) 20 ML IVP SCH (02:41)
[2019-03-30] MEDS: Artificial Tears SOLN 15 ML BOTTLE BOTH EYES SCH (02:42)
[2019-03-30 05:43] LABS: Hematocrit 37.5 % (35.3-44.9); Hemoglobin 12.1 g/dL (11.5-15.4); Mean Corpuscular HGB Conc 32.3 g/dL (31.6-35.5); Mean Corpuscular Hemoglobin 32.3 pg (28.0-33.3); Platelet Count 161 K/mcL (140-400); Red Blood Count 3.75 M/mcL (3.82-4.97); Red Cell Distribution Width 12.8 % (11.5-14.5)
[2019-03-30] MEDS: *HR* Heparin 5,000 UNIT/ML VIAL SQ SCH ×2 (05:47→17:34)
[2019-03-30] MEDS: Pantoprazole 40 MG VIAL IVP SCH (05:47)
[2019-03-30 06:06] LABS: BUN/Creatinine Ratio 21 (6-26); Blood Urea Nitrogen 11 mg/dL (8-23); Calcium 9.1 mg/dL (8.6-10.3); Carbon Dioxide 28 mEq/L (23-29); Chloride 102 mEq/L (98-107); Glucose 66 mg/dL (70-105); Magnesium 1.7 mg/dL (1.6-2.6); Osmolality,Calculated 290 (280-300); Phosphorous 2.7 mg/dL (2.7-4.5); Sodium 141 mEq/L (136-145); eGFR For African Americans > 60 (> 60); eGFR For Non-African Americans > 60 (> 60)
--- NOTE | 2019-03-30 07:54 | Pulmonology Progress Note ---
<Cecily Jules - Last Filed: 03/30/19 08:00> Date of Encounter: 03/30/19 Time of Encounter: 07:52 Assessment and Plan (1) Sepsis Current Visit: Yes Status: Acute Resolved. No further episodes of tachycardia or fever Likely secondary to UTI At presentation was not tachycardic or febrile At presentation noted to have temperature of 100.7, heart rate in the 90s with WBC 14.3 This morning white count 13.0 today remained afebrile Has responded appropriately to volume resuscitation Continue ceftriaxone for UTI and IV Flagyl day 4 for aspiration pneumonia Qualifiers: Sepsis type: sepsis due to unspecified organism Severe sepsis acute organ dysfunction type: acute respiratory failure Acute respiratory failure type: with hypercapnia Severe sepsis shock status: without septic shock Qualified Code(s): A41.9 - Sepsis, unspecified organism; R65.20 - Severe sepsis without septic shock; J96.02 - Acute respiratory failure with hypercapnia (2) Acute hypercapnic respiratory failure Current Visit: Yes Status: Acute Presented to the ED due to worsening mental status Prior to intubation she was noted to have hypercapnia Was intubated at presentation was subsequently extubated on 03/28/19 Likely secondary to decreased muscle strength from progressive Parkinson's disease Continue 3 liter nasal cannula (3) UTI (urinary tract infection) Current Visit: Yes Status: Acute Presented with altered mental status urinalysis showed leukocyte esterase with white blood cell count Urine culture shows Klebsiella pneumonia and gram-positive cocci Continue ceftriaxone day 4 of 10 Qualifiers: Urinary tract infection type: site unspecified Hematuria presence: without hematuria Qualified Code(s): N39.0 - Urinary tract infection, site not specified (4) Parkinsons disease Current Visit: Yes Status: Chronic History of progressed Parkinson's disease Prescribed Sinemet at home but has not been taking it due to dysphagia Concern for severely progressed Parkinson's Unable to pass a swallowing study, therefore cannot take her oral Sinemet (5) Aspiration pneumonia Current Visit: Yes Status: Suspected Concern for aspiration pneumonia given dysphagia Was intubated at presentation, chest x-ray at presentation did not show any significant finding Continue to treat for aspiration pneumonia with IV Flagyl day 4 of 7 Qualifiers: Aspiration pneumonia type: unspecified Laterality: unspecified laterality Lung location: unspecified part of lung Qualified Code(s): J69.0 - Pneumonitis due to inhalation of food and vomit (6) Dysphagia Current Visit: Yes Status: Chronic Dysphagia likely secondary to progressive Parkinson's disease Family reports for quite some time she has had poor oral intake and often needs to be fed small bites at a time Received feeding with tube feeding during intubation She does not want a PEG tube Failed barium swallow study yesterday and bedside swallow study Qualifiers: Dysphagia type: unspecified Qualified Code(s): R13.10 - Dysphagia, unspecified (7) Failure to thrive Current Visit: Yes Status: Chronic BMI of 17.3 Likely secondary to poor oral intake Received tube feeding Appeared to have refeeding syndrome after starting tube feeding decreased to feed Electrolyte protocol was initiated prior to starting tube feeding Electrolytes have normalized Currently nothing by mouth due to failed speech evaluation Qualifiers: Failure to thrive age range: in adult Qualified Code(s): R62.7 - Adult failure to thrive (8) Dehydration Current Visit: Yes Status: Resolved Dehydration likely secondary to decreased oral intake Per family, patient has been having difficulty swallowing for quite some time progressed the past 3 days prior to admission Hydrating with IV fluids given she is unable to tolerate oral intake (9) DVT prophylaxis Current Visit: Yes Status: Acute Subcutaneous heparin Subjective Interval history: Ms. Lofton was seen at bedside this morning. She was resting comfortably. Was awake alert following commands and speaking. She did that she was hungry and wanted to be and was eager for the swallow study. Objective PUL Vital signs: Last Vital Signs Temp 98.4 F 03/30/19 04:00 Pulse 92 03/30/19 07:00 Resp 18 03/30/19 07:00 BP 166/102 03/30/19 07:00 Pulse Ox 99 03/30/19 07:00 General appearance: no acute distress, alert Eyes: nonicteric ENT: oropharynx moist Neck: supple Effort: normal Auscultation: bilateral: diminished breath sounds Cardiovascular: regular rate and rhythm Gastrointestinal: normoactive bowel sounds, soft, non-tender, non-distended Integumentary: normal Extremities: no cyanosis, no edema Musculoskeletal: no deformities pupils equal and round, other (Not able to be in audible tone) mood appropriate, affect normal Results - Laboratory Findings CBC and BMP: 03/30/19 04:20 03/30/19 04:20 ABG ABG pH 7.53 pH Units (7.32-7.45) H 03/28/19 04:32 ABG pCO2 29 mmHg (35-45) L 03/28/19 04:32 ABG pO2 92 mmHg (85-104) 03/28/19 04:32 ABG O2 Saturation 98 % (95-98) 03/28/19 04:32 PT/INR, D-dimer PT 14.1 Seconds (9.4-12.1) H 03/27/19 09:54 Abnormal lab findings: Abnormal lab results WBC 13.0 K/mcL (4.3-11.1) H 03/30/19 04:20 RBC 3.75 M/mcL (3.82-4.97) L 03/30/19 04:20 Hgb 10.8 g/dL (11.5-15.4) L D 03/28/19 04:50 Hct 33.1 % (35.3-44.9) L 03/28/19 04:50 MCV 111.1 fL (83.0-100.0) H 03/27/19 04:23 MCHC 29.4 g/dL (31.6-35.5) L 03/27/19 04:23 Neutrophils # 9.4 K/mcL (1.6-8.9) H 03/28/19 04:50 Lymphocytes # 0.5 K/mcL (0.6-4.6) L 03/27/19 04:23 Macrocytosis Present (Not Present) A 03/27/19 04:23 PT 14.1 Seconds (9.4-12.1) H 03/27/19 09:54 ABG pH 7.53 pH Units (7.32-7.45) H 03/28/19 04:32 ABG pCO2 29 mmHg (35-45) L 03/28/19 04:32 ABG pO2 175 mmHg (85-104) H 03/27/19 03:04 ABG HCO3 35 mEq/L (21-27) H 03/27/19 05:32 ABG Total CO2 36 mEq/L (20-26) H 03/27/19 05:32 ABG Base Excess 9 mEq/L (-2 to 3) H 03/27/19 05:32 Sodium 147 mEq/L (136-145) H 03/27/19 09:54 Potassium 3.1 mEq/L (3.5-5.1) L 03/28/19 04:00 Chloride 110 mEq/L (98-107) H 03/27/19 09:54 Carbon Dioxide 31 mEq/L (23-29) H 03/27/19 09:54 BUN 24 mg/dL (8-23) H 03/28/19 04:00 Creatinine 0.53 mg/dL (0.60-1.20) L 03/30/19 04:20 Est GFR (Non-Af Amer) 57 (> 60) L 03/27/19 04:23 BUN/Creatinine Ratio 31 (6-26) H 03/28/19 04:00 Glucose 66 mg/dL (70-105) L 03/30/19 04:20 POC Glucose 67 mg/dL (70-99) L 03/29/19 20:19 Calculated Osmolality 308 (280-300) H 03/27/19 09:54 Calcium 8.5 mg/dL (8.6-10.3) L 03/27/19 09:54 Venous Ioniz Calcium 1.13 mmol/L (1.15-1.35) L 03/28/19 17:03 Phosphorus 1.7 mg/dL (2.7-4.5) L 03/28/19 04:00 Magnesium 1.5 mg/dL (1.6-2.6) L 03/28/19 04:00 Creatine Kinase 289 Units/L (30-223) H 03/27/19 09:54 Urine Clarity Cloudy (Clear) A 03/26/19 23:55 Urine Protein 100 mg/dL (Neg-Trace) H 03/26/19 23:55 Urine Blood Trace (Negative) H 03/26/19 23:55 Urine Bilirubin Small (Negative) H 03/26/19 23:55 Ur Leukocyte Esterase Large (Negative) H 03/26/19 23:55 Urine Microscopic RBC 5-15 per hpf (0-3) H 03/26/19 23:55 Urine Microscopic WBC TNTC per hpf (0-3) H 03/26/19 23:55 Ur Squamous Epith Cells Many per lpf (None-Few) H 03/26/19 23:55 Ur Culture Indicated? YES (NO) A 03/26/19 23:55 - Microbiology Findings Microbiology Findings: Microbiology, Last 48 Hours 03/26/19 23:55 Urine Culture - Preliminary Urine,Clean Catch Klebsiella pneu.ssp pneumoniae Gram Positive Cocci - Clinical Findings Intake & Output: Intake & Output 03/29/19 03/29/19 03/30/19 15:59 23:59 07:59 Intake Total 204 / 524 100 / 524 1120 / 1120 Output Total 350 / 3275 450 / 3275 950 / 950 Balance -146 / -2751 -350 / -2751 170 / 170 Weight 43 kg Consult Discharge Plan - Plan Referrals: Yan Jacob MD [Primary Care Provider] - <Jenny Ann - Last Filed: 03/30/19 13:41> Date of Encounter: 03/30/19 Objective PUL Vital signs: Last Vital Signs Temp 99.0 F 03/30/19 12:24 Pulse 95 03/30/19 12:24 Resp 16 03/30/19 12:24 BP 158/91 03/30/19 12:24 Pulse Ox 100 03/30/19 12:24 Results - Laboratory Findings CBC and BMP: 03/30/19 04:20 03/30/19 04:20 ABG ABG pH 7.53 pH Units (7.32-7.45) H 03/28/19 04:32 ABG pCO2 29 mmHg (35-45) L 03/28/19 04:32 ABG pO2 92 mmHg (85-104) 03/28/19 04:32 ABG O2 Saturation 98 % (95-98) 03/28/19 04:32 PT/INR, D-dimer PT 14.1 Seconds (9.4-12.1) H 03/27/19 09:54 Abnormal lab findings: Abnormal lab results WBC 13.0 K/mcL (4.3-11.1) H 03/30/19 04:20 RBC 3.75 M/mcL (3.82-4.97) L 03/30/19 04:20 Hgb 10.8 g/dL (11.5-15.4) L D 03/28/19 04:50 Hct 33.1 % (35.3-44.9) L 03/28/19 04:50 MCV 111.1 fL (83.0-100.0) H 03/27/19 04:23 MCHC 29.4 g/dL (31.6-35.5) L 03/27/19 04:23 Neutrophils # 9.4 K/mcL (1.6-8.9) H 03/28/19 04:50 Lymphocytes # 0.5 K/mcL (0.6-4.6) L 03/27/19 04:23 Macrocytosis Present (Not Present) A 03/27/19 04:23 PT 14.1 Seconds (9.4-12.1) H 03/27/19 09:54 ABG pH 7.53 pH Units (7.32-7.45) H 03/28/19 04:32 ABG pCO2 29 mmHg (35-45) L 03/28/19 04:32 ABG pO2 175 mmHg (85-104) H 03/27/19 03:04 ABG HCO3 35 mEq/L (21-27) H 03/27/19 05:32 ABG Total CO2 36 mEq/L (20-26) H 03/27/19 05:32 ABG Base Excess 9 mEq/L (-2 to 3) H 03/27/19 05:32 Sodium 147 mEq/L (136-145) H 03/27/19 09:54 Potassium 3.1 mEq/L (3.5-5.1) L 03/28/19 04:00 Chloride 110 mEq/L (98-107) H 03/27/19 09:54 Carbon Dioxide 31 mEq/L (23-29) H 03/27/19 09:54 BUN 24 mg/dL (8-23) H 03/28/19 04:00 Creatinine 0.53 mg/dL (0.60-1.20) L 03/30/19 04:20 Est GFR (Non-Af Amer) 57 (> 60) L 03/27/19 04:23 BUN/Creatinine Ratio 31 (6-26) H 03/28/19 04:00 Glucose 66 mg/dL (70-105) L 03/30/19 04:20 POC Glucose 67 mg/dL (70-99) L 03/29/19 20:19 Calculated Osmolality 308 (280-300) H 03/27/19 09:54 Calcium 8.5 mg/dL (8.6-10.3) L 03/27/19 09:54 Venous Ioniz Calcium 1.13 mmol/L (1.15-1.35) L 03/28/19 17:03 Phosphorus 1.7 mg/dL (2.7-4.5) L 03/28/19 04:00 Magnesium 1.5 mg/dL (1.6-2.6) L 03/28/19 04:00 Creatine Kinase 289 Units/L (30-223) H 03/27/19 09:54 Urine Clarity Cloudy (Clear) A 03/26/19 23:55 Urine Protein 100 mg/dL (Neg-Trace) H 03/26/19 23:55 Urine Blood Trace (Negative) H 03/26/19 23:55 Urine Bilirubin Small (Negative) H 03/26/19 23:55 Ur Leukocyte Esterase Large (Negative) H 03/26/19 23:55 Urine Microscopic RBC 5-15 per hpf (0-3) H 03/26/19 23:55 Urine Microscopic WBC TNTC per hpf (0-3) H 03/26/19 23:55 Ur Squamous Epith Cells Many per lpf (None-Few) H 03/26/19 23:55 Ur Culture Indicated? YES (NO) A 03/26/19 23:55 - Microbiology Findings Microbiology Findings: Microbiology, Last 48 Hours 03/26/19 23:55 Urine Culture - Final Urine,Clean Catch Klebsiella pneu.ssp pneumoniae Enterococcus faecium - Clinical Findings Intake & Output: Intake & Output 03/29/19 03/30/19 03/30/19 23:59 07:59 15:59 Intake Total 100 / 524 1120 / 1120 Output Total 450 / 3275 950 / 1175 225 / 1175 Balance -350 / -2751 170 / -55 -225 / -55 Weight 43 kg - Attending Attestation Attending Attestation I saw and evaluated this patient and my medical decision-making was reviewed with the Resident Physician. I agree with the documented findings, disposition and treatment plan as described except to the extent set forth below. We indepe ndently had [id number] contact with the patient Patient seen and examined at bedside Labs, radiology, chart personally reviewed. Management was reviewed during multidisciplinary critical care rounds. HEALTH EDUCATION DIRECTOR: Patient is alert following commands and was able to have some conversation today Pulm: Patient has acceptable oxygenation and ventilation Cards: Patient is hemodynamically stable to control afterload and preload. FEN-GI: Patient did not swallow evaluation patient failed looks like patient will be strict nothing by mouth patient declined PEG tube at this point Renal: Labs and output were reviewed ID: To continue the current regimen of antibiotics patient urine culture grew enterococcus is patient white count is coming down patient clinically getting better this can be contaminant in this situation deteriorates 1 antibiotic that will be ideal for will be IV vancomycin. We will continue to follow regarding the trend of her urinary tract infection. Heme/Onc: Labs reviewed Endo: Glucose Monitored Integ/MSK: Skin Care per routine ICU Nursing Protocol to prevent ulcers. Lines: All lines examined without evidence of infection : Dispo: Patient is being shifted to hospitalist service with palliative care involvement patient might transitioned to comfort care or go home with home hospice. DNRCA -DNI
[2019-03-30] MEDS: *HR* Metoprolol 5 MG/5 ML VIAL IVP PRN (08:03)
[2019-03-30] MEDS: MetroNIDAZOLE 500 MG/100 ML 500 MG/100 ML BAG IVPB SCH ×2 (08:03→17:34)
[2019-03-30] MEDS ORDERED: *HR* Metoprolol 5 MG/5 ML VIAL IVP PRN (08:12)
[2019-03-30] MEDS ORDERED: D5% in Water 1,000 ML IVC PRN (08:12)
[2019-03-30] MEDS ORDERED: *HR* Dextrose 50 % in Water (Syg) 50 ML SYRINGE IVP PRN (08:12)
[2019-03-30] MEDS ORDERED: Acetaminophen 325 MG TABLET PO PRN (08:12)
[2019-03-30] MEDS ORDERED: Naloxone 0.4 MG/ML INJ IVP PRN (08:12)
[2019-03-30] MEDS ORDERED: *HR* Labetalol 20 MG/4 ML SYRINGE IVP PRN (08:12)
[2019-03-30] MEDS ORDERED: Dextrose Gel 15 GM/37.5 ML TUBE PO PRN ×2 (08:12)
[2019-03-30] MEDS: Carbidopa/Levodopa 25/100 TABLET PO SCH ×3 (08:44→20:52)
--- NOTE | 2019-03-30 11:23 | Palliative Progress Note ---
Date of Encounter: 03/30/19 Time of Encounter: 11:00 - Assessment and plan (1) Failure to thrive Current Visit: Yes Status: Chronic Qualifiers: Failure to thrive age range: in adult Qualified Code(s): R62.7 - Adult failure to thrive (2) Dysphagia Current Visit: Yes Status: Chronic Assessment and plan: Failed MBS. Speech is following. Qualifiers: Dysphagia type: unspecified Qualified Code(s): R13.10 - Dysphagia, unspecified (3) Parkinsons disease Current Visit: Yes Status: Chronic (4) Goals of care, counseling/discussion Current Visit: Yes Status: Acute Assessment and plan: Patient does not have any family present during my visit, but she is alert and oriented. Is able to express to me that she wants to do exercises with therapy, but does not want a permanent PEG tube placed. Will attempt to see again this afternoon if family arrives. (5) Palliative care encounter Current Visit: Yes Status: Acute - Time Spent With Patient Total time spent is greater than 50% in coordination of care (as documented) at patient's floor/unit and/or counseling patient: - Subjective Interval history: Patient has been transferred out of ICU. She is resting quietly, alert and oriented. Speaks in a whisper. Appears very weak. Is able to tell me that she failed barium swallow, and wants to do exercises with therapy. States her Parkinsons has made her weak. No family is present. Afebrile, WBC 13. - Constitutional Vitals: Abnormal lab results WBC 13.0 K/mcL (4.3-11.1) H 03/30/19 04:20 RBC 3.75 M/mcL (3.82-4.97) L 03/30/19 04:20 Hgb 10.8 g/dL (11.5-15.4) L D 03/28/19 04:50 Hct 33.1 % (35.3-44.9) L 03/28/19 04:50 MCV 111.1 fL (83.0-100.0) H 03/27/19 04:23 MCHC 29.4 g/dL (31.6-35.5) L 03/27/19 04:23 Neutrophils # 9.4 K/mcL (1.6-8.9) H 03/28/19 04:50 Lymphocytes # 0.5 K/mcL (0.6-4.6) L 03/27/19 04:23 Macrocytosis Present (Not Present) A 03/27/19 04:23 PT 14.1 Seconds (9.4-12.1) H 03/27/19 09:54 ABG pH 7.53 pH Units (7.32-7.45) H 03/28/19 04:32 ABG pCO2 29 mmHg (35-45) L 03/28/19 04:32 ABG pO2 175 mmHg (85-104) H 03/27/19 03:04 ABG HCO3 35 mEq/L (21-27) H 03/27/19 05:32 ABG Total CO2 36 mEq/L (20-26) H 03/27/19 05:32 ABG Base Excess 9 mEq/L (-2 to 3) H 03/27/19 05:32 Sodium 147 mEq/L (136-145) H 03/27/19 09:54 Potassium 3.1 mEq/L (3.5-5.1) L 03/28/19 04:00 Chloride 110 mEq/L (98-107) H 03/27/19 09:54 Carbon Dioxide 31 mEq/L (23-29) H 03/27/19 09:54 BUN 24 mg/dL (8-23) H 03/28/19 04:00 Creatinine 0.53 mg/dL (0.60-1.20) L 03/30/19 04:20 Est GFR (Non-Af Amer) 57 (> 60) L 03/27/19 04:23 BUN/Creatinine Ratio 31 (6-26) H 03/28/19 04:00 Glucose 66 mg/dL (70-105) L 03/30/19 04:20 POC Glucose 67 mg/dL (70-99) L 03/29/19 20:19 Calculated Osmolality 308 (280-300) H 03/27/19 09:54 Calcium 8.5 mg/dL (8.6-10.3) L 03/27/19 09:54 Venous Ioniz Calcium 1.13 mmol/L (1.15-1.35) L 03/28/19 17:03 Phosphorus 1.7 mg/dL (2.7-4.5) L 03/28/19 04:00 Magnesium 1.5 mg/dL (1.6-2.6) L 03/28/19 04:00 Creatine Kinase 289 Units/L (30-223) H 03/27/19 09:54 Urine Clarity Cloudy (Clear) A 03/26/19 23:55 Urine Protein 100 mg/dL (Neg-Trace) H 03/26/19 23:55 Urine Blood Trace (Negative) H 03/26/19 23:55 Urine Bilirubin Small (Negative) H 03/26/19 23:55 Ur Leukocyte Esterase Large (Negative) H 03/26/19 23:55 Urine Microscopic RBC 5-15 per hpf (0-3) H 03/26/19 23:55 Urine Microscopic WBC TNTC per hpf (0-3) H 03/26/19 23:55 Ur Squamous Epith Cells Many per lpf (None-Few) H 03/26/19 23:55 Ur Culture Indicated? YES (NO) A 03/26/19 23:55 General appearance: Present: no acute distress, thin. Absent: febrile - Respiratory Respiratory exam: Present: decreased breath sounds Additional comments: Shallow inspiratory effort - Cardiovascular Cardiovascular exam: Present: +S1, +S2 - GI/Abdominal GI/Abdominal exam: Present: normal bowel sounds, soft - Additional comments: Voids per bedpan - Extremities Exam Extremities exam: Present: normal capillary refill, normal inspection - Neurological Exam Neurological exam: Present: alert, oriented X3 Additional comments: generalized weakness - Psychiatric Psychiatric exam: Present: flat affect - Skin Skin exam: Present: dry, pallor, warm Palliative Quality Palliative Quality: Screen for Code Status: Yes, Screen for Goals of Care: Yes, Screen for Pain: Yes, Screen for Nausea/Vomitting: Yes Code Status: 03/27/19 02:47 Resuscitation Status: Active [RES] Routine Comment: Resuscitation Status: DNR-Comfort Care-Arrest 03/28/19 11:34 DNR [Resuscitation Status: Active] [RES] Routine Comment: Resuscitation Status: [id number] - Labs CBC & Chem 7: 03/30/19 04:20 03/30/19 04:20 Labs: Laboratory Results - last 24 hr 03/29/19 03/29/19 03/30/19 11:00 20: 04:20 WBC 13.0 H RBC 3.75 L Hgb 12.1 Hct 37.5 MCV 100.0 MCH 32.3 MCHC 32.3 RDW 12.8 Plt Count 161 MPV 11.0 Sodium Potassium Chloride Carbon Dioxide BUN Creatinine Est GFR ( Amer) Est GFR (Non-Af Amer) BUN/Creatinine Ratio Glucose POC Glucose 61 L 67 L Calculated Osmolality Calcium Phosphorus Magnesium 03/30/19 04:20 WBC RBC Hgb Hct MCV MCH MCHC RDW Plt Count MPV Sodium 141 Potassium 4.0 Chloride 102 Carbon Dioxide 28 BUN 11 Creatinine 0.53 L Est GFR ( Amer) > 60 Est GFR (Non-Af Amer) > 60 BUN/Creatinine Ratio 21 Glucose 66 L POC Glucose Calculated Osmolality 290 Calcium 9.1 Phosphorus 2.7 Magnesium 1.7 - Impressions Impressions Videofluoroscopic Swallow 03/29/19 15:00 IMPRESSION: 1. Aborted modified barium swallow examination. 2. Please see separate speech pathology report for full discussion of findings and recommendations. RECOMMENDATIONS: Repeat examination may be attempted, once patient's condition improves. D/ / 03/29/2019 16:17:46 Martín Negron MD / bcarter Interpreting Provider: Martín Negron MD - ABG Interpretation ABG results: ABG ABG pH 7.53 pH Units (7.32-7.45) H 03/28/19 04:32 ABG pCO2 29 mmHg (35-45) L 03/28/19 04:32 ABG pO2 92 mmHg (85-104) 03/28/19 04:32 ABG O2 Saturation 98 % (95-98) 03/28/19 04:32 PT/INR, D-dimer PT 14.1 Seconds (9.4-12.1) H 03/27/19 09:54 Palliative Scale - Palliative Performance Scale How ambulatory is this patient?: Mainly in bed What is patient's level of activity and evidence of disease?: Unable to do most activity, Extensive disease How much self-care assistance does patient require?: Total care How much oral intake does the patient have?: Mouth care only What is this patient's level of consciousness?: Full Palliative Performance Score: 40 % Consult Discharge Plan - Plan Referrals: Yan Jacob MD [Primary Care Provider] -
--- NOTE | 2019-03-30 19:53 | Event Note ---
Date of Encounter: 03/30/19 Time of Encounter: 18:15 Called by patient's son SEEMA MAXWELL after I had left for the day. Spoke with him as well as multiple family members via telephone and reviewed previous conversation with patient regarding no artificial feeding and comfort feeds after patient signed dysphagia waiver. Family wanted to know how they could get patient home this weekend with hospice care, as she was asking to go home as soon as possible and did not want to wait until Tuesday. Contacted [facility] front office help hospice nurse and gave her referral information. Informed her of patient's need of oxygen/bed, and provided SEEMA, anthony MAXWELL phone number. This will be relayed to hospice nurse front office help Tuesday, who will likely call hospitalist to discuss.
[2019-03-30] MEDS: 0.9 % Sodium Chloride 1,000 ML IVC SCH (20:51)
[2019-03-30] MEDS ORDERED: cefTRIAXone 2,000 MG in Water for inj. (sterile) 20 ML IVP SCH (23:00)
[2019-03-31] MEDS: MetroNIDAZOLE 500 MG/100 ML 500 MG/100 ML BAG IVPB SCH ×2 (00:01→09:43)
[2019-03-31] MEDS ORDERED: cefTRIAXone 2,000 MG in Water for inj. (sterile) 20 ML IVP SCH (03:00)
[2019-03-31] MEDS ORDERED: Acetaminophen IV 500 MG/50 ML INFUS..BTL IVPB ONE (04:38)
[2019-03-31] MEDS: *HR* Heparin 5,000 UNIT/ML VIAL SQ SCH (05:40)
[2019-03-31] MEDS ORDERED: Pantoprazole 40 MG VIAL IVP SCH (06:30)
[2019-03-31 07:17] VITALS: BP 147/87
--- NOTE | 2019-03-31 07:35 | Internal Med Progress Note ---
Hospitalist Progress Note - Encounter Date of Encounter: 03/31/19 - Exam Vitals: Temp Pulse Resp BP Pulse Ox 98.1 F 100 20 147/87 100 03/31/19 07:09 03/31/19 07:09 03/31/19 07:09 03/31/19 07:09 03/31/19 07:09 Exam: very dry in appearance, somnolent, arousable, looking around with her eyes - Assessment and Plan (1) Parkinsonism Current Visit: Yes Status: Chronic Assessment and Plan: 1. Progressive and advanced. 2. Resume home meds as appropriate when meds verified. 3. Goals of care discussion as above. (2) Dehydration Current Visit: Yes Status: Resolved Assessment and Plan: 1. IVF hydration. 2. Monitor electrolytes closely, I/O, and renal function. 3. Krishna placement for critical I/O monitoring. (3) Failure to thrive Current Visit: Yes Status: Chronic (4) UTI (urinary tract infection) Current Visit: Yes Status: Acute (5) Acute hypercapnic respiratory failure Current Visit: Yes Status: Acute (6) DVT prophylaxis Current Visit: Yes Status: Acute - Time Spent with Patient Total time spent is greater than 50% in coordination of care (as documented) at patient's floor/unit and/or counseling patient: Internal Medicine: Result - Labs CBC & Chem 7: 03/30/19 04:20 03/30/19 04:20 - ABG Interpretation ABG results: ABG ABG pH 7.53 pH Units (7.32-7.45) H 03/28/19 04:32 ABG pCO2 29 mmHg (35-45) L 03/28/19 04:32 ABG pO2 92 mmHg (85-104) 03/28/19 04:32 ABG O2 Saturation 98 % (95-98) 03/28/19 04:32 PT/INR, D-dimer PT 14.1 Seconds (9.4-12.1) H 03/27/19 09:54 Consult Discharge Plan - Plan Referrals: Yan Jacob MD [Primary Care Provider] - (1) Parkinsonism Qualifiers: Parkinsonism type: Parkinson's disease Qualified Code(s): G20 - Parkinson's disease (3) Failure to thrive Qualifiers: Failure to thrive age range: in adult Qualified Code(s): R62.7 - Adult failure to thrive (4) UTI (urinary tract infection) Qualifiers: Urinary tract infection type: acute cystitis Hematuria presence: with hematuria Qualified Code(s): N30.01 - Acute cystitis with hematuria
[2019-03-31] MEDS: 0.9 % Sodium Chloride 1,000 ML IVC SCH (09:43)
[2019-03-31] MEDS: Carbidopa/Levodopa 25/100 TABLET PO SCH (09:52)
--- NOTE | 2019-03-31 11:24 | Discharge Summary ---
Orders not resulted at time of discharge: Pending orders 03/27/19 04:24 Culture,Blood [BC] Stat Date of Encounter: 03/31/19 Time of Encounter: 09:00 - Discharge Diagnosis (1) Acute hypercapnic respiratory failure Priority: Primary Status: Acute Assessment and Plan: 83 year old female who presents to the ER tonight with complaints of altered mental status, weakness, poor oral intake for last several days, and difficulty swallowing food. She was found to be profoundly dehydrated and had evidence of UTI. She was therefore admitted to the hospitalist service. Upon my assessment of the patient in ER, her 2 sons and sister were at the bedside. Patient was very dehydrated in appearance, nonverbal, weak, but alert and responsive. History was obtained from both her sons and her sister. 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 She lives at home with 24-hour in- house care. Family members state that over the last 3 days, she has had minimal to no oral intake, including fluids. She has had increasing confusion, decreased alertness, and increased somnolence according to family. Patient received IV fluids and antibiotics in the ER. Patient was conversant earlier in the day with her sons and verbally told them that she refused to have a feeding tube placed. Patient noted to have status change shortly after arrival to nursing unit. Patient intubated and airway secured, then moved to ICU for ongoing ventilatory support. She was assessed with altered mental status secondary to sepsis from UTI and aspiration pneumonia and acute respiratory failure. She was managed in the ICU on vent and antibiotics and was successfully extubated and transferred to the floor. Family have decided to make her hospice and she is being discharged home with hospice. 35 minutes was spent discharging this patient (2) Sepsis Priority: Primary Status: Acute Qualifiers: Sepsis type: sepsis due to unspecified organism Severe sepsis acute organ dysfunction type: acute respiratory failure Acute respiratory failure type: with hypercapnia Severe sepsis shock status: without septic shock Qualified Code(s): A41.9 - Sepsis, unspecified organism; R65.20 - Severe sepsis without septic shock; J96.02 - Acute respiratory failure with hypercapnia (3) Parkinsonism Priority: Primary Status: Chronic Qualifiers: Parkinsonism type: Parkinson's disease Qualified Code(s): G20 - Parkinson's disease (4) Dehydration Priority: Primary Status: Resolved (5) Failure to thrive Priority: Primary Status: Chronic Qualifiers: Failure to thrive age range: in adult Qualified Code(s): R62.7 - Adult failure to thrive (6) UTI (urinary tract infection) Priority: Primary Status: Acute Qualifiers: Urinary tract infection type: acute cystitis Hematuria presence: with hematuria Qualified Code(s): N30.01 - Acute cystitis with hematuria (7) DVT prophylaxis Priority: Primary Status: Acute Hospital course: Ms. Lofton is a 83 year old female - Time Spent with Patient Total time spent providing and/or coordinating discharge services: - Discharge Medications Prescriptions: New LORazepam Oral Conc [Ativan Oral Conc] 2 mg PO Q4HR 30 Days #30 mls Morphine Sulfate Oral CONC [Roxanol Oral Conc] 20 mg SL Q2HR PRN 7 Days #30 oral.syg PRN Reason: Shortness Of Breath Ondansetron ODT [Zofran ODT] 4 mg SL Q8HR PRN #60 tab.rapdis PRN Reason: Nausea And Vomiting Scopolamine Patch [Transderm-Scop] 1.5 mg TD Q72H #60 patch.td72 Atropine Sulfate [Isopto Atropine] 1 ml OP Q4HR PRN 60 Days #60 drops PRN Reason: Secretions Continued Krill Oil/[place]-3/Dha/Epa [[place]-3 Krill Oil Softgel] 1 each PO DAILY l [place]/B Bifidum/B Longum [[facility] Colon Health Capsule] 1 each PO DAILY Rotigotine [Neupro] 1 each TD DAILY Fluticasone Propionate Nasal [Flonase] 50 mcg NS BID PRN PRN Reason: Allergy Symptoms Calcium Carbonate/Vitamin D3 [Calcium 600 + Vit D Softgel] 1 each PO DAILY Polyethylene Glycol 3350 [MiraLAX] 17 gm PO DAILY PRN PRN Reason: Constipation Torsemide [Demadex] 10 mg PO DAILY PRN PRN Reason: edema Megestrol Acetate [Megace] 40 mg PO DAILY Albuterol Sulfate [Proair Hfa] 2 puff IH Q4H PRN PRN Reason: Dyspnea Tamsulosin HCl [Flomax] 0.4 mg PO DAILY Venlafaxine [Effexor] 25 mg PO BID #180 tablet Carbidopa/Levodopa 25/100 [Sinemet 25/100] 2 each PO TID Omeprazole [PriLOSEC] 20 mg PO DAILY Vitamin D3/Folic Acid [Ortho Df 3,775 Unit-1 mg Cap] 1 each PO DAILY Lisinopril [Zestril] 5 mg PO DAILY Home Medications: Krill Oil/[place]-3/Dha/Epa [[place]-3 Krill Oil Softgel] 1 each PO DAILY 06/18/15 [History] l [place]/B Bifidum/B Longum [[place] [employer] bio Health Capsule] 1 each PO DAILY 06/18/15 [History] Fluticasone Propionate Nasal [Flonase] 50 mcg NS BID PRN 06/22/17 [History] Rotigotine [Neupro] 1 each TD DAILY 06/22/17 [History] Calcium Carbonate/Vitamin D3 [Calcium 600 + Vit D Softgel] 1 each PO DAILY 01/02/18 [History] Albuterol Sulfate [Proair Hfa] 2 puff IH Q4H PRN 06/12/18 [History] Megestrol Acetate [Megace] 40 mg PO DAILY 06/12/18 [History] Polyethylene Glycol 3350 [MiraLAX] 17 gm PO DAILY PRN 06/12/18 [History] Tamsulosin HCl [Flomax] 0.4 mg PO DAILY 06/12/18 [History] Torsemide [Demadex] 10 mg PO DAILY PRN 06/12/18 [History] Venlafaxine [Effexor] 25 mg PO BID #180 tablet 07/26/18 [Rx] Carbidopa/Levodopa 25/100 [Sinemet 25/100] 2 each PO TID 03/28/19 [History] Lisinopril [Zestril] 5 mg PO DAILY 03/28/19 [History] Omeprazole [PriLOSEC] 20 mg PO DAILY 03/28/19 [History] Vitamin D3/Folic Acid [Ortho Df 3,775 Unit-1 mg Cap] 1 each PO DAILY 03/28/19 [History] Atropine Sulfate [Isopto Atropine] 1 ml OP Q4HR PRN 60 Days #60 drops 03/31/19 [Rx] LORazepam Oral Conc [Ativan Oral Conc] 2 mg PO Q4HR 30 Days #30 mls 03/31/19 [Rx] Morphine Sulfate Oral CONC [Roxanol Oral Conc] 20 mg SL Q2HR PRN 7 Days #30 oral.syg 03/31/19 [Rx] Ondansetron ODT [Zofran ODT] 4 mg SL Q8HR PRN #60 tab.rapdis 03/31/19 [Rx] Scopolamine Patch [Transderm-Scop] 1.5 mg TD Q72H #60 patch.td72 03/31/19 [Rx] Allergies/Adverse Reactions: Allergy/AdvReac Type Severity Reaction Status Date / Time aspirin [ASA] Allergy Nausea Verified 03/26/19 22:02 Penicillins [PCN] Allergy Nausea Verified 03/26/19 22:02 Date of admission: 03/27/19 01:45 Primary care physician: Yan Jacob MD Consults: 03/27/19 03:47 Consult to Pulmonology [CONS] Routine Consulting Provider: [facility] Reason for Consult: ICU management Call Completed: No 03/27/19 05:17 Consult to Palliative Care [CONS] Routine Comment: Consulting Provider: [facility] [place] Reason for Consult: goals of care counseling with family Call Completed: No 03/27/19 11:27 Consult to Nutrition [CONS] Routine Comment: Consulting Provider: NUTRITION Reason for Dietary Consult: Tube Feed Start & Manage 03/29/19 16:23 Consult to Speech Therapy [CONS] Routine Comment: Evaluate, develop and implement POC Reason for Consult: For bedside swallow evaluation Call Completed: Yes - Constitutional Vitals: Temp Pulse Resp BP Pulse Ox 98.1 F 100 20 147/87 100 03/31/19 07:09 03/31/19 07:09 03/31/19 07:09 03/31/19 07:09 03/31/19 07:09 General appearance: Present: A&O X 0, no acute distress. Absent: answers questions appropriately Exam: General appearance: Present: A&O X 3, no acute distress. Lethargic Head exam: Present: normocephalic Respiratory exam: Present: CTAB. Absent: accessory muscle use, rales, rhonchi, wheezes Cardiovascular exam: Present: RRR, +S1, +S2. Absent: diastolic murmur, gallop, rubs, systolic murmur GI/Abdominal exam: Soft, NT, ND, +BS Extremities exam: Absent: pedal edema Neurological exam: Present: alert, oriented X3, no focal deficits. Absent: altered - Patient Status Disposition: Hospice - Home Condition: Good - Discharge Instructions Follow Up With: Yan Jacob MD [Primary Care Provider] - (web requested 03/31/19) Forms: ED Satisfaction Letter, Work/School Release
--- NOTE | 2019-03-31 11:26 | Physician Discharge Referral ---
Home Health/Hosp Referral Info Transfer to: Home Health - Diagnosis (1) Parkinsonism Priority: Primary Status: Chronic (2) Dehydration Priority: Primary Status: Resolved (3) Failure to thrive Priority: Primary Status: Chronic (4) UTI (urinary tract infection) Priority: Primary Status: Acute (5) Acute hypercapnic respiratory failure Priority: Primary Status: Acute (6) DVT prophylaxis Priority: Primary Status: Acute - Respiratory Orders Smoking Cessation: Smoking cessation has been advised. For more information, call the [place] Tobacco Quit Line at 6-051-QIRD-NOW. - Activity Activity Orders: Ambulate - Services Needed Following services are medically necessary services: Nursing, Home Health Aide, Physical Therapy - Transfer Medications Home Medications: Krill Oil/[place]-3/Dha/Epa [[place]-3 Krill Oil Softgel] 1 each PO DAILY 06/18/15 [History] l [place]/B Bifidum/B Longum [[place] Colon Health Capsule] 1 each PO DAILY 06/18/15 [History] Fluticasone Propionate Nasal [Flonase] 50 mcg NS BID PRN 06/22/17 [History] Rotigotine [Neupro] 1 each TD DAILY 06/22/17 [History] Calcium Carbonate/Vitamin D3 [Calcium 600 + Vit D Softgel] 1 each PO DAILY 01/02/18 [History] Albuterol Sulfate [Proair Hfa] 2 puff IH Q4H PRN 06/12/18 [History] Megestrol Acetate [Megace] 40 mg PO DAILY 06/12/18 [History] Polyethylene Glycol 3350 [MiraLAX] 17 gm PO DAILY PRN 06/12/18 [History] Tamsulosin HCl [Flomax] 0.4 mg PO DAILY 06/12/18 [History] Torsemide [Demadex] 10 mg PO DAILY PRN 06/12/18 [History] Venlafaxine [Effexor] 25 mg PO BID #180 tablet 07/26/18 [Rx] Carbidopa/Levodopa 25/100 [Sinemet 25/100] 2 each PO TID 03/28/19 [History] Lisinopril [Zestril] 5 mg PO DAILY 03/28/19 [History] Omeprazole [PriLOSEC] 20 mg PO DAILY 03/28/19 [History] Vitamin D3/Folic Acid [Ortho Df 3,775 Unit-1 mg Cap] 1 each PO DAILY 03/28/19 [History] Allergies/Adverse Reactions: Allergy/AdvReac Type Severity Reaction Status Date / Time aspirin [ASA] Allergy Nausea Verified 03/26/19 22:02 Penicillins [PCN] Allergy Nausea Verified 03/26/19 22:02 Certification: Further, I certify that my clinical findings support that this patient is homebound (i.e. absences from home require considerable and taxing effort and are for medical reasons or uatsdin services or infrequently or short duration when for other reasons) because: Homebound Reason: Patient requires assistance of a person or device to safely leave home Attestation: My signature below is to certify that this patient is under my care and that I, or nurse practitioner, or a physician's family assistant working with me, has a [id number] encounter with this patient.
[2019-03-31] MEDS ORDERED: Morphine Sulfate Oral CONC 10 MG/0.5 ML ORAL.SYG SL PRN (11:41)
[2019-03-31] MEDS ORDERED: Atropine Sulfate 1% 40 DROP/2 ML BOTTLE SL PRN (11:43)
[2019-03-31] MEDS ORDERED: Ondansetron ODT 4 MG TAB.RAPDIS SL PRN (11:46)
[2019-03-31] MEDS ORDERED: Scopolamine Patch 1.5 MG PATCH.TD72 TD SCH (12:00)
[2019-03-31] MEDS ORDERED: *HR* LORazepam Oral Conc 2 MG/ML PO SCH (12:00)
== END 2019-03-31 15:15 | disposition hospice, home (50) | DRG 871 ==
LOC: EMEROOARM 21:44 → 3ANU 21:44 → OBSVTOIN 03-27 01:45 → 3ANU 03-27 02:43 → ICNU 03-27 03:15 → 2ANU 03-30 09:01
PROVIDERS: ADMIT Pediatrics; ATTEND Pediatrics